=== PATIENT | female | born 1955 | race Caucasian/White ===

== ENCOUNTER 2018-05-15 08:52 | Inpatient (IN) | payer OTHER, MEDICARE, SELFPAY ==
[2018-05-08 09:52] VITALS: BMI 21.0
[2018-05-15] VITALS (14 sets, daily range): BP systolic 110–146; BP diastolic 52–95; PULSE 64–96; RESP 9–18; TEMP 36.3–37.1; O2SAT 91–100; BMI 21.0
[2018-05-15] MEDS: LACTATED RINGERS 1,000 ML 42 ML IV ×2 (09:45→12:56)
--- NOTE | 2018-05-15 09:54 | SUR.OPER ---
Prone on spine table, head in foam head support, padded chest and pelvic supports, gel pad at knees, lower legs supported by pillows; nipples, genitalia and toes free of pressure, arms secured on foam padded arm boards at <90 degrees abduction. Tape over blanket at thigh secured to table.
[2018-05-15] MEDS: CEFAZOLIN 1 GM VIAL IV (10:02)
[2018-05-15] MEDS: BUPIVACAINE LIPOSOME 266 MG/20 ML VIAL INJ (10:44)
[2018-05-15] MEDS: BUPIVACAINE 0.25% W/ EPI VIAL 50 ML INJ (10:45)
[2018-05-15] MEDS: ACETAMINOPHEN IV 1,000 MG/100 ML VIAL 400 MG IV (11:09)
--- NOTE | 2018-05-15 11:52 | DI.RAD.S_ITS ---
PROCEDURE: XR LUMBAR SPINE 2-3V INDICATIONS: L4-5 TLIF TECHNIQUE: Fluoroscopic images were obtained during an operative procedure and submitted for interpretation following the completion of the procedure. COMPARISON: None. FINDINGS: These fluoroscopic images were performed for intraoperative localization. On these images, bilateral pedicle screws with vertical fixation rods are placed at the L4 and L5 levels. A disc spacer is seen at L4-L5. Please correlate with intraoperative findings. IMPRESSION: Normal intraoperative examination. Dictated by: Rob Jay M.D. on 05/15/2018 at 11:32 Approved by: Rob Jay M.D. on 05/15/2018 at 11:33
--- NOTE | 2018-05-15 12:04 | PM.PREOP ---
Pre-operative Note Interval Note Pre-op Check: Yes History & Physical Reviewed by Physician, Yes Exam Performed and Yes History & Physical exam performed today by Physician Changes: No
--- NOTE | 2018-05-15 12:08 | P.OP_ITS ---
Operative Date/Time/Diagnoses Date of procedure: 05/15/18 Time of procedure: 10:06 Pre-op diagnosis: 1. Lumbar scoliosis 2. Lumbar spinal stenosis 3. Lumbar spondylosis with radiculopathy Post-op diagnosis: same Procedure & Clinicians Procedure: 1. L4-5 Postero-lateral and posterior interbody fusion 2. L4-5 interbody cage placement. 3. L4-5 decompressive laminectomy with bilateral facetecomies 4. L4-5 Posterior non-segmental instrumentation 5. L5-S1 left hemilaminectomy 6. [place] of bone marrow from iliac crest 7. Utilization of microsurgical technique and operating microscope Same procedure as scheduled: No Indications: Patient has been having chronic back pain and worsening lumbar radiculopathy. Patient failed multiple conservative management with worsening pain weakness and numbness in her lower extremity. Patient has been having difficulty performing activity of daily living. After discussing risks benefits of treatment options, patient elected proceed with surgery. Surgeon: Rossy Cruz Wound Care Physician: Leida Fu Click Yes if Unassisted: No Anesthesia Type: General Operative Notes Closure Type: primary Specimen(s): none sent Implants & Drains: Globus revolve screws, Rise cage Estimated Blood Loss (mL): 50 Blood products transfused: none Procedure in detail: Patient was seen in the preoperative area. Risks and benefits of the surgery was discussed with the patient. Informed consent was obtained from the patient and placed in the chart. Surgical site was marked. Patient was taken to the operative room. General anesthesia was administered. Prophylactic antibiotic was given to the patient less than 30 min before the incision was made. Patient was placed into a prone position on the Kervin table. Patient's back was then prepped and draped in the sterile fashion. Time- out was performed at this time. Using AP and lateral C-arm imaging the interval between L4-5 L5-S1 was identified and marked on patient's back. A 2 inch incision 2 in from midline was made on the left side first. The fascia was incised in line with skin incision. Globus MARS retractors was placed inside the incision and docked onto the L4 lamina. Using microsurgical technique and operating microscope, a L4 laminectomy and L4-5 facetectomy was performed using a Kerrison rongeur. The disc space at L4-5 was identified. And a total diskectomy was performed at L4-5 level. The endplates were decorticated using a rasp and shaver. The total diskectomy and decortication was performed at L4-5 level in order to to accomplish a L4-5 fusion. The local bone from the laminectomy and facetectomy was saved for local bone grafting. After the total diskectomy and decortication was completed, Globus viacell bone graft material was combined with local bone that was harvested earlier. At this time, a separate skin is incision was made over the iliac crest. A Jamshidi needle was inserted into the iliac crest through a separate skin incision. 5 cc of bone marrow aspiration was obtained through the separate skin incision using a Jamshidi needle from the iliac crest. The bone marrow aspiration was combined with local bone and the via cell bone grafting material. The bone grafting material was placed into the L4-5 interbody space along with a expandable cage. The cage was expanded to its maximum height using the torque limiting screwdriver. At this time the MARS retractor was redirected over the L5 lamina. Using microsurgical technique and operating microscope, a L5-S1 heminectomy was performed using the Kerrison rongeur. The ligamentum flavum was also resected at the side of the hemilaminectomy for further decompression of the epidural space. At this time a mirror image incision was made on the right side. The fascia was incised in line with the skin incision. Globus MARS retractor was inserted and docked onto the L4-5 posterolateral gutter. Using the power drill, posterior- lateral decortication was performed at L4-5 level until bleeding cortical bone was identified. The remaining bone grafting material was placed into the L4-5 posterior lateral gutter he order to accomplish posterolateral fusion at the L4- 5 level. Using the double C-arm technique, pedicle screws were placed into the L4 and L5 pedicles bilaterally. This was done by placing the Jamshidi needle into the pedicles, then placing the guidewires over the Jamshidi needle, and finally placing the cannulated screws over the guidewires bilaterally. After the pedicle screws were placed, 2 titanium rods was locked into the heads of the pedicle screws using locking caps and torque limiting screwdriver. After all the hardware was placed, and confirmed with AP and lateral C-arm imaging, the wound was then irrigated with sterile normal saline and packed with Ray-Jeromy gauze for 3 min to accomplish hemostasis. After the gauze was removed the deep fascia was closed with #1 Vicryl suture. The subcutaneous layer was closed with 2-0 Vicryl. The skin was closed with skin can. Patient tolerated the procedure well. There were no complications. Complications: none Condition: stable Disposition: Acute Care Plan for aftercare: Admit to inpatient hospital
[2018-05-15] MEDS: HYDROMORPHONE 2 MG INJ 0.5 MG IV ×2 (12:28→12:35)
[2018-05-15] MEDS: LORazepam 2 MG/ML SYRINGE 0.25 MG IV ×2 (12:46→12:51)
[2018-05-15] MEDS: HYDROMORPHONE 1 MG INJ 0.5 MG IV ×4 (14:25→22:44)
[2018-05-15] MEDS: SODIUM CHLORIDE 0.9% 1,000 ML 100 ML IV (14:26)
--- NOTE | 2018-05-15 14:41 | PC.NURSE ---
1325 Pt arrived from PACU via bed, post op TLIF, Pt is awake O x3. SL left FA. Pt on room air, sats 97%, Dressing to back surg site is c,d,i. Pt able to log roll in bed, ice to surg site for comfort. VS WNL. scd placed BLE. 1350 Pt c/o pain of 10/10. Pt is active in the bed, Pt assisted to BRP. Inst Pt on safety/call light use/ do not attempt to get OOB mby self. Pt agrees, states she understands.
[2018-05-15] MEDS: LORazepam 1 MG TABLET PO (15:06)
[2018-05-15] MEDS: OXYCODONE IR 5 MG TABLET 10 MG PO ×2 (15:58→19:21)
--- NOTE | 2018-05-15 17:10 | PT.IIE ---
Current Diagnoses Other idiopathic scoliosis, lumbar region (05/15/18) Spondylolisthesis, lumbar region (05/15/18) Spinal stenosis, lumbar region with neurogenic claudication (05/15/18) Surgery Performed Operation Date: 05/15/18 11:15 Actual Procedures p L5-S1 Hemilaminectomy; L4-5 TLIF w/ Posterior Instrumentation(Not Applicable) - Rossy Cruz MD Surgical History (Last Reviewed 05/15/18 @ 14:41 by Reid Watters) History of ankle surgery (Acute) Hx of discectomy (Acute) S/P wrist surgery (Acute) Medical History (Last Reviewed 05/15/18 @ 14:41 by Reid Watters) ADHD (Acute) Alcoholism (Acute) Arthritis (Acute) Back pain (Acute) Depression (Acute) Heartburn (Acute) Hypothyroidism (Acute) Numbness and tingling (Acute) PTSD (post-traumatic stress disorder) (Acute) Raynaud's disease (Acute) Sciatica (Acute) Scoliosis (Acute) Physical Therapy Inpatient Evaluation/Re-Eval M1 PT/OT-IP Prior Functional Status Start: 05/15/18 17:15 Freq: NEEDED Status: Active Protocol: Document 05/15/18 17:10 RCC (Rec: 05/15/18 17:31 RCC [email or web address]) Medical Review Prior Functional Status Mobility and Gait indep. community ambulation without device Activities of Daily Living and IADL's indep. I/ADLs Social History Household Members none Living Arrangements Apartment/Condo Number of Floors (Floors) Two Floors Number of Stairs To Enter/Railing? 8 SE with unilat rail, 8 steps inside with unilat. rail Home Environment Standard Height Toilet Tub/Shower Additional Social History Comment denies having any AD; flat bed , lives alone; pt states she took the bus to get to the hospital for surgery, does not have a ride home. M2 PT-IP Current Condition Start: 05/15/18 17:15 Freq: NEEDED Status: Active Protocol: Document 05/15/18 17:10 RCC (Rec: 05/15/18 17:31 [facility] [email or web address]) Physical Therapy Current Condition Current Condition Evaluation Date 05/15/18 Treatment Diagnosis L4-5 fusion, impaired gait and mobility Onset Date 05/15/18 Precautions Lumbar Precautions Log Roll No Twisting Limit Bending Lifting Restriction of 10 lbs Gait Belt above Incisional Area M3 PT-IP Subjective Start: 05/15/18 17:15 Freq: NEEDED Status: Active Protocol: Document 05/15/18 17:10 RCC (Rec: 05/15/18 17:31 RCC [email or web address]) Subjective Physical Therapy Visit Type Type Initial Evaluation Visit Start Time 16:40 Visit Stop Time 17:10 Total Visit Minutes 30 Number of RADIATION ONCOLOGY MANAGER Visits 0 Physical Therapy Visit Comments Patient Comments pt states pain is 10/10 in low back. Therapy Pain Assessment Pain When Pain Assessed At Rest Location Lower Back Intensity 10 Scale Used Numeric (1 - 10) M4 PT-IP Mobility and Gait Start: 05/15/18 17:15 Freq: NEEDED Status: Active Protocol: Document 05/15/18 17:10 RCC (Rec: 05/15/18 17:31 RCC [email or web address]) PT-Transfer Assessment Sit to and From Stand Sit to and from Stand Contact Guard Assistance Equipment Transfer Assistive Device Gait Belt Front Wheeled Walker Transfers Transfer Destination Chair Toilet Transfer Technique Stand Step Pivot Transfer Ability Level of Assist Contact Guard Assistance Gait Assessment Gait Gait Assistance Required: Contact Guard Assist Distance (Feet) 30 Assistive Devices Assistive Device Gait Belt Front Wheeled Walker Gait Deviations General Gait Pattern Antalgic Decreased Stride Length Decreased Feet Clearance Factors Limiting Gait Function Factors Limiting Gait Function Decreased Activity Tolerance Decreased Strength Pain PT-Balance Assessment Sitting Balance and Reactions Static Sitting Balance Ability Good Dynamic Sitting Balance Ability Good Standing Balance and Reactions Static Standing Balance Ability Fair Dynamic Standing Balance Ability Fair Device Used FWW M5 PT-IP Objective Assessments Start: 05/15/18 17:15 Freq: NEEDED Status: Active Protocol: Document 05/15/18 17:10 RCC (Rec: 05/15/18 17:31 RCC [email or web address]) Orientation Orientation/Cognition Level of Alertness Alert Orientation Name Age Birthday Month Date Year Day of Week Place Situation Strength Lower Extremity Strength Assessment Within Functional Limits Sensation Assessment Comments Sensation Comments pt denies numbness/tingling except for L toes 1-3 when walking downhill M6 PT-IP Treatment Start: 05/15/18 17:15 Freq: NEEDED Status: Active Protocol: Document 05/15/18 17:10 RCC (Rec: 05/15/18 17:31 RCC [email or web address]) Physical Therapy Treatment Education Education Provided Precautions Post-Op Packet Safety M7 PT-IP Assessment and Plan Start: 05/15/18 17:15 Freq: NEEDED Status: Active Protocol: Document 05/15/18 17:10 RCC (Rec: 05/15/18 17:31 RCC [email or web address]) PT Summary Assessment and Plan Potential Rehabilitation Potential Good Status of Condition at Evaluation Stable Summary Impairments Pain Strength Bed Mobility Transfers Gait Activity Tolerance Assessment Summary Same day post-op L4-5 postero- lateral and posterior interbody fusion. Pt able to ambulate a short distance with FWW. She has upper body tremors she reports that are not her norm, pain rated 10/10 prior to mobility. Attempted to have pt perform bed mobility but she requested to get to BR. Overall, pt with high rating of pain, appears to be limiting her ability to tolerate mobility at this time . Pt lives alone, does not have anyone around to help her . Pt stated that she planned for SNF rehabilitation prior to this surgery due to not having any assistance at home. She may struggle with activities of daily living and overall safety if she is to d /c home. Pt would benefit from SNF rehabilitation to progress her gait, mobility, safety, and overall functional independence given the risk of fall and delayed healing if she is required to perform all activities without assistance. Goals Bed Mobility Goal Independent Transfer Goal Independent Gait Goal Independent Gait Distance 300 Other Goals up/down 8 steps with unilat. rail and CGA Days to Meet Goals 3 Frequency of Treatment Frequency Of Treatment Twice a Day Treatment Plan Physical Therapy Treatment Plan Bed Mobility Training Transfer Training Gait Training Therapeutic Exercise Post Op Education Discharge Planning Hot or Cold Pack Neuromuscular Re-ed Recommendations To Nursing Amount of Assist Needed 1 Person Assist Discharge Recommendations PT Discharge Recommendations SNF Rehab Equipment Needed for Home Before if home, then FWW, BSC, tub Discharge transfer bench
[2018-05-15] MEDS: CEFAZOLIN 1 GM/50 ML FROZ.PIGGY IV (18:15)
--- NOTE | 2018-05-15 20:49 | PC.NURSE ---
Patient doing ok. Vitals stable. Continues to have a pain level of 9 and 10 throughout my whole shift. Have been trying to control her pain with Dilaudid and Oxycodone which has seemed to help some. Her pain is at a 9 at the moment. Physical therapy came to work with her tonight. ISAURO SAHU
[2018-05-15] MEDS: ACETAMINOPHEN 325 MG TABLET 650 MG PO (21:52)
[2018-05-15] MEDS: PRAZOSIN 1 MG CAPSULE 2 MG PO (21:52)
[2018-05-15] MEDS: QUETIAPINE 25 MG TABLET 50 MG PO (21:52)
[2018-05-15] MEDS: TRAZODONE 50 MG TABLET 150 MG PO (21:52)
[2018-05-15] MEDS: DOCUSATE 100 MG CAPSULE PO (21:52)
[2018-05-15] MEDS: SENNOSIDES 8.6 MG TABLET 17.2 MG PO (21:53)
[2018-05-15] MEDS: hydrOXYzine pamoate 25 MG CAPSULE PO (22:40)
[2018-05-16 01:15] VITALS: BP 103/61; PULSE 62; RESP 18; TEMP 36.6; O2SAT 95
[2018-05-16] MEDS: HYDROMORPHONE 1 MG INJ 0.5 MG IV ×2 (01:28→06:52)
[2018-05-16] MEDS: SODIUM CHLORIDE 0.9% 1,000 ML 100 ML IV ×2 (01:29→11:18)
[2018-05-16] MEDS: CEFAZOLIN 1 GM/50 ML FROZ.PIGGY IV (01:29)
[2018-05-16] MEDS: OXYCODONE IR 5 MG TABLET 10 MG PO ×3 (02:09→20:55)
[2018-05-16] MEDS: LORazepam 1 MG TABLET PO ×3 (02:12→17:38)
[2018-05-16 05:09] VITALS: BP 104/70; PULSE 71; RESP 18; TEMP 36.9; O2SAT 95
[2018-05-16 05:39] LABS: Hematocrit 35.7 % (36-46)
[2018-05-16] MEDS: LEVOTHYROXINE 50 MCG TABLET PO (05:57)
[2018-05-16] MEDS: hydrOXYzine pamoate 25 MG CAPSULE PO (06:54)
--- NOTE | 2018-05-16 07:47 | PM.PNPO.1 ---
Subjective Date Patient Seen: 05/16/18 Time Patient Seen: 07:47 Interval history: Pt is PD 1. S/P lumbar fusion by Dr. Cruz. Complaining of pain and muscle spasms. Denies numbness or tingling. Currently receiving oxycodone 10 mg q.3h as needed and Vistaril 25 mg. States that before surgery she had been on oxycodone 3 times a day for pain. Has been up out of bed to the restroom. Eating and drinking well. Would like to go to SNF after discharge from the hospital because she has no one to take care of her at home. Exam Vital Signs (past 8 hours): - 05/16/18 01:15 05/16/18 05:09 Temperature 97.8 F 98.4 F Pulse Rate 62 71 Respiratory Rate 18 18 Blood Pressure 103/61 104/70 Pulse Oximetry 95 95 Oxygen Delivery Method Room Air Oxygen Flow Rate 0 Narrative Exam Narrative: Patient in bed. Alert orient x3. Back dressing clean dry and intact. Neurovascular status intact. 5/5 BLE strength. Bilateral calves soft and nontender. Objective Labs Result Diagrams: 05/16/18 05:06 Labs: Laboratory Results - last 24 hr 05/16/18 05:06 Hgb 12.0 Hct 35.7 L Assessment & Plan Post-op Postoperative Procedures Operation Date: 05/15/18 11:15 Actual Procedures Side Surgeon p L5-S1 Hemilaminectomy; L4-5 TLIF w/ Posterior Instrumentation Not Applicable Rossy Cruz MD postop day 1. Switch the patient to Dilaudid 2 mg q.3h as needed pain. Also order her Flexeril 10 mg q.6h as needed muscle spasms. Patient has taken Flexeril before and has had good results. Ambulate with physical therapy. May need this with after discharge from the hospital. Anticipate discharge in couple of days. Quality VTE Deep Vein Thrombosis/Pulmonary Embolism Present on Admission: No
[2018-05-16 08:25] VITALS: BP 137/87; PULSE 70; RESP 22; TEMP 37.3; O2SAT 96
[2018-05-16] MEDS: PRAZOSIN 1 MG CAPSULE 2 MG PO ×3 (08:48→20:55)
[2018-05-16] MEDS: GABAPENTIN 300 MG CAPSULE PO (08:48)
[2018-05-16] MEDS: VENLAFAXINE ER 75 MG CAP 225 MG PO (08:49)
[2018-05-16] MEDS: LORATADINE 10 MG TABLET PO (08:49)
[2018-05-16] MEDS: DOCUSATE 100 MG CAPSULE PO ×2 (08:49→20:54)
[2018-05-16] MEDS: FLUTICASONE 120 SPRAY/16 GM SPRAY.SUSP NASAL (08:49)
[2018-05-16] MEDS: HYDROMORPHONE 2 MG TABLET PO ×3 (08:50→19:10)
[2018-05-16] MEDS: CYCLOBENZAPRINE 10 MG TABLET PO ×2 (09:46→15:59)
--- NOTE | 2018-05-16 10:25 | PC.NURSE ---
Addendum entered by [place] 05/16/18 11:26: 0.9% NS at 100/hr and Dextroamphetamine 25 mg received from pharmacy and administered at 11:20. Patient continual complaints of severe pain, but denied Tylenol per PRN for additional pain control. Pt also reports wooziness and stomach cramps, and was informed that zofran is available for reduction of nausea if these symptoms were to progress. Original Note: Patient expresses complaints of severe pain (9/10) and muscle spasms in her back around 08:00. Patient was notified of changes in medications, and explained that she smokes 3-4 cigarettes a day and is requesting a nicotine patch. Pt's home med dextroamphetamine-amphetamine 25 mg PO was claimed from pts belongings with pt permission. Pt Is tearful and anxious but oriented x4 and alert, vital signs normal and O2 sat in high 90's. Medications administered with breakfast around 09:00 including Dilaudid 2mg PO to help control pain. Pt has called provider and charge nurse multiple times in regards to complaints of inadequate pain management. Flexeril 10mg PO was given at 09:46 to help control patient-reported leg and back muscle spasms, Ativan 1mg PO was administered 10:16 to help alleviate anxiety until the next scheduled pain medication - neither medication have provided adequate pain relief as reported by the patient. Currently waiting on pharmacy for dextroamphetamine-amphetamine 25mg PO.
[2018-05-16] MEDS: DEXTROAMPHETAMINE AMPHETAMINE 25 EACH PO (11:16)
--- NOTE | 2018-05-16 11:43 | PT.IPTN ---
Current Diagnoses Other idiopathic scoliosis, lumbar region (05/15/18) Spondylolisthesis, lumbar region (05/15/18) Spinal stenosis, lumbar region with neurogenic claudication (05/15/18) Surgery Performed Operation Date: 05/15/18 11:15 Actual Procedures p L5-S1 Hemilaminectomy; L4-5 TLIF w/ Posterior Instrumentation(Not Applicable) - Rossy Cruz MD Physical Therapy Treatment Note M2 PT-IP Current Condition Start: 05/15/18 17:15 Freq: NEEDED Status: Active Protocol: Document 05/15/18 17:10 RCC (Rec: 05/15/18 17:31 RCC [email or web address]) Physical Therapy Current Condition Current Condition Evaluation Date 05/15/18 Treatment Diagnosis L4-5 fusion, impaired gait and mobility Onset Date 05/15/18 Precautions Lumbar Precautions Log Roll No Twisting Limit Bending Lifting Restriction of 10 lbs Gait Belt above Incisional Area M3 PT-IP Subjective Start: 05/15/18 17:15 Freq: NEEDED Status: Active Protocol: Document 05/16/18 11:34 SA (Rec: 05/16/18 11:42 SA [id number]) Subjective Physical Therapy Visit Type Type Treatment Note Visit Start Time 10:50 Visit Stop Time 11:10 Total Visit Minutes 20 Number of SMOKEHOUSE OPERATOR Visits 1 Physical Therapy Visit Comments Patient Comments Pt with 10/10 c/o of low back pain at rest. States her pain is not being managed. Nursing present with pain medication, also pt received pain meds earlier this AM. Pt does state she needs to go to bathroom. Therapy Pain Assessment Pain When Pain Assessed At Rest Pain Present Pain Present Pain Reported Location Lower Back Intensity 10 Scale Used Numeric (1 - 10) Pain Management Techniques Apply Cold Re-positioning Timing of Activity with Medications M4 PT-IP Mobility and Gait Start: 05/15/18 17:15 Freq: NEEDED Status: Active Protocol: Document 05/16/18 11:34 SA (Rec: 05/16/18 11:42 SA [id number]) PT-Bed Mobility Assessment Rolling Type of Rolling Log Rolling Roll to Right Supine to Sit Supine to Sit Minimal Assistance Sit to Supine Sit to Supine Minimal Assistance Scooting Scooting to Edge of Bed Minimal Assistance Scooting Up and Down in Bed Moderate Assistance PT-Transfer Assessment Sit to and From Stand Sit to and from Stand Contact Guard Assistance Equipment Transfer Assistive Device Gait Belt Front Wheeled Walker Transfers Transfer Destination Bed Toilet Transfer Ability Level of Assist Contact Guard Assistance Comments Mobility Comments Pt very guarded and exhibits pain behaviors. Gait Assessment Gait Gait Assistance Required: Contact Guard Assist Distance (Feet) 40 Assistive Devices Assistive Device Gait Belt Front Wheeled Walker Gait Deviations General Gait Pattern Decreased Stride Length Decreased Feet Clearance Flexed Trunk Factors Limiting Gait Function Factors Limiting Gait Function Decreased Activity Tolerance Decreased Strength Pain Comments Gait Comments PT able to walk to/from bathroom with FWW and CGA, mod cues for safety. M5 PT-IP Objective Assessments Start: 05/15/18 17:15 Freq: NEEDED Status: Active Protocol: Document 05/15/18 17:10 RCC (Rec: 05/15/18 17:31 RCC [email or web address]) Orientation Orientation/Cognition Level of Alertness Alert Orientation Name Age Birthday Month Date Year Day of Week Place Situation Strength Lower Extremity Strength Assessment Within Functional Limits Sensation Assessment Comments Sensation Comments pt denies numbness/tingling except for L toes 1-3 when walking downhill M6 PT-IP Treatment Start: 05/15/18 17:15 Freq: NEEDED Status: Active Protocol: Document 05/15/18 17:10 RCC (Rec: 05/15/18 17:31 [facility] [email or web address]) Physical Therapy Treatment Education Education Provided Precautions Post-Op Packet Safety M7 PT-IP Assessment and Plan Start: 05/15/18 17:15 Freq: NEEDED Status: Active Protocol: Document 05/16/18 11:34 SA (Rec: 05/16/18 11:42 SA [id number]) PT Summary Assessment and Plan Potential Rehabilitation Potential Good Status of Condition at Evaluation Stable Summary Assessment Summary Pt with pain as most limiting factor, upper body tremors and c/o being cold. Able to stand at sink to russ hands and turn with FWW in tight spaces, Mod cues for safety and technique . Frequency of Treatment Frequency Of Treatment Twice a Day Recommendations To Nursing Amount of Assist Needed 1 Person Assist Discharge Recommendations PT Discharge Recommendations SNF Rehab Equipment Needed for Home Before if home, then FWW, BSC, tub Discharge transfer bench
[2018-05-16] MEDS: NICOTINE 7 MG PATCH TOP (12:13)
--- NOTE | 2018-05-16 14:44 | OT.IP.EVAL ---
Current Diagnoses Other idiopathic scoliosis, lumbar region (05/15/18) Spondylolisthesis, lumbar region (05/15/18) Spinal stenosis, lumbar region with neurogenic claudication (05/15/18) Surgery Performed Operation Date: 05/15/18 11:15 Actual Procedures p L5-S1 Hemilaminectomy; L4-5 TLIF w/ Posterior Instrumentation(Not Applicable) - Rossy Cruz MD Past Medical History (Last Reviewed 05/15/18 @ 14:41 by Reid Watters) ADHD (Acute) Alcoholism (Acute) Arthritis (Acute) Back pain (Acute) Depression (Acute) Heartburn (Acute) Hypothyroidism (Acute) Numbness and tingling (Acute) PTSD (post-traumatic stress disorder) (Acute) Raynaud's disease (Acute) Sciatica (Acute) Scoliosis (Acute) Surgical History (Last Reviewed 05/15/18 @ 14:41 by Reid Watters) History of ankle surgery (Acute) Hx of discectomy (Acute) S/P wrist surgery (Acute) Occupational Therapy Inpatient Evaluation/Re-Eval M1 PT/OT-IP Prior Functional Status Start: 05/15/18 17:15 Freq: NEEDED Status: Active Protocol: Document 05/16/18 14:44 PJM (Rec: 05/16/18 16:51 PJM [id number]) Medical Review Prior Functional Status Medical History Reviewed Yes Diet/Fluid Consistency Regular Communication WFL Mobility and Gait indep. community ambulation without device Activities of Daily Living and IADL's indep. I/ADLs Prior Functional Level (Other details) Pt does not own a car; uses bus in [facility] for transport to grocery store. Limited social support, but will occasionally ask a friend to assist with groceries when absolutely necessary. Social History Household Members none Living Arrangements Apartment/Condo Number of Floors (Floors) One Floor Number of Stairs To Enter/Railing? 8+8 stairs with rail Home Environment Standard Height Toilet Tub/Shower Additional Social History Comment Pt states she has been on disability since 2006. Pt has no DME at home M2 OT-IP Current Condition Start: 05/16/18 16:34 Freq: Status: Active Protocol: Document 05/16/18 14:44 PJM (Rec: 05/16/18 16:51 PJM [id number]) Occupational Therapy Current Condition Current Condition Evaluation Date 05/16/18 Treatment Diagnosis decreased self care and functional mobility s/p L4-5 PLIF Diagnosis Onset Date 05/15/16 Post Operative Precautions Lumbar Precautions Log Roll No Twisting Limit Bending Lifting Restriction of 10 lbs Gait Belt above Incisional Area M3 OT- IP Subjective and Pain Start: 05/16/18 16:34 Freq: Status: Active Protocol: Document 05/16/18 14:44 PJM (Rec: 05/16/18 16:51 PJM [id number]) OT- Subjective Occupational Therapy Visit Type Type Initial Evaluation Visit Start Time 14:21 Visit Stop Time 14:44 Total Visit Minutes 23 Notes Participation limited by decreased pain control this session. Occupational Therapy Visit Comments Patient Comments I didn't think it would hurt this much. It is worse than my last 2 back surgeries. Patient/Caregiver Goals to go to rehab I can't manage at home on my own. OT Pain Assessment Pain When Pain Assessed After Treatment Pain Present Pain Present Pain Reported Location Lower Back Intensity 9 Scale Used Numeric (1 - 10) Description Aching Acute Pain Behaviors Facial Grimacing Guarding Restlessness Wincing Management Techniques Re-positioning Timing of Activity with Medications M4 OT- IP ADL's Start: 05/16/18 16:34 Freq: Status: Active Protocol: Document 05/16/18 14:44 PJM (Rec: 05/16/18 16:51 PJM [email or web address]) OT [id number] General Evaluation Self-Feeding Ability Independent OT ADL-Grooming General Evaluation Grooming Ability Standby Assistance Areas Needing Assistance Retrieving/Set-up of Grooming Items Face Washing Comments OT Grooming Comments to wash face in bed OT ADL-Oral Care Comments Oral Care Comments pt declined this session OT ADL-Dressing General Eval Lower Body Dressing Ability Maximum Assistance Comments OT Dressing Comments Provided felled seam operator chainstitch,long shoe horn and sock aid as pt lives alone and has limited resources to purchase equipment. OT ADL-Toileting General Evaluation Toileting Ability Standby Assistance Areas Needing Assistance Perform Perineal Hygiene Devices Toileting Assistive Devices Grab Bars Raised Toilet Seat OT ADL-Bathing Comments OT Bathing Comments to be assessed as activiyt level improves M5 OT- IP IADL's Start: 05/16/18 16:34 Freq: Status: Active Protocol: Document 05/16/18 14:44 PJM (Rec: 05/16/18 16:51 PJM [id number]) OT-Instrumental Activities of Daily Living Deficits IADL Deficits Identified Deficits Home Safety Awareness Awareness of Need for Assistance at Home Good Awareness Ability to Problem Solve Emergency Able to Problem Solve Situations Medication Management Medication Management No Deficits Identified Money Management Money Management No Deficits Identified Meal Preparation Meal Preparation Comments pt will need assist at present due to low activity tolerance; provided information about [employer] grocery services at [facility] [employer] Plug Shaper Hand Plug Shaper Hand Comments pt will need assist at present due to lumbar spine precautions Driving Driving Comments pt does not own a car; took bus here and does not have ride home arranged M6 OT- IP Functional Cognition Start: 05/16/18 16:34 Freq: Status: Active Protocol: Document 05/16/18 14:44 PJM (Rec: 05/16/18 16:51 [facility] NR) Cognitive Factors Limiting Selfcare Function Cognitive Ability Level of Alertness Alert Patient Orientation Name Age Birthday Month Date Year Day of Week Place Situation Attention Span Ability Capable of Focused Attention Ability to Follow Commands Able to Follow One Step Commands Safety Awareness Decreased Recall of Precautions Decreased Ability to Apply Precautions Problem Solving Ability Needs Assist to Identify Solutions Cognitive Comments Cognitive Assessment Comments flat affect; pt distracted by high pain level OT- Vision and Hearing OT- Hearing Assessment OT- Hearing Assessment WFL OT- Vision Assessment Visual Acuity Glasses All The Time Vision Assessment Comments Pt denies any recent vision changes M7 OT- IP Mobility and Balance Start: 05/16/18 16:34 Freq: Status: Active Protocol: Document 05/16/18 14:44 PJM (Rec: 05/16/18 16:51 [facility] [id number]) OT- Bed Mobility Assessment Rolling Type of Rolling Roll to Left Level of Assistance Minimal Assistance 1 Person Assistance Sit to Supine Sit to Supine Assist Moderate Assistance 1 Person Assistance Scooting Scooting to Edge of Bed Standby Assistance OT-Transfer Assessment Sit to and From Stand Sit to and from Stand Contact Guard Assistance Technique Transfer Destination Bed Transfer Technique Stand Step Pivot Devices Transfer Assistive Devices Gait Belt Front Wheeled Walker OT- Gait Assessment Gait Distance (Feet) 20 Assistive Devices Assistive Device Gait Belt Front Wheeled Walker Comments Gait Ability Comments Pt just leaving bathroom with RN when therapist arrived. OT- Balance Assessment Sitting Balance and Reactions Static Sitting Balance Ability Good Dynamic Sitting Balance Ability Fair Standing Balance and Reactions Static Standing Balance Ability Good Dynamic Standing Balance Ability Fair M8 OT- IP Objective Assessments Start: 05/16/18 16:34 Freq: Status: Active Protocol: Document 05/16/18 14:44 PJM (Rec: 05/16/18 16:51 PJM [id number]) OT Gross Range of Motion Upper Extremity Range of Motion Assessment Within Functional Limits OT Strength Upper Extremity Strength Assessment Within Functional Limits OT- Coordination Assessment Comments Coordination Comments BUE WFL OT-Muscle Tone Assessment Muscle Tone WNL Yes OT Sensation Assessment Comments Summary Comments BUE WNL M9 OT- IP Assessment and Plan Start: 05/16/18 16:34 Freq: Status: Active Protocol: Document 05/16/18 14:44 PJM (Rec: 05/16/18 16:51 PJM [id number]) OT Summary Assessment and Plan Potential Rehabilitation Potential Good Analytic Complexity at Evaluation Low Summary OT Impairments Pain Strength Balance Functional Mobility Grooming Dressing Toileting Bathing Toilet Transfers Shower Transfers Assessment Summary Low complexity OT assessment completed with emphasis on self care skills within lumbar spine precautions. Pt lives alone with limited social support and is far below her baseline level of function. She currently has performance deficits in activity tolerance , all functional mobility/ transfers, standing grooming, lower body dressing, bathing, toileting and all IADLs. Pt not safe to return home alone to her 2nd story apartment. Recommend SNF at d/c for further subacute rehab services. Goals Grooming Goal Standby Assistance Dressing Goal Minimal Assistance Long Handled Shoe Horn Business Intelligence Administrator Sock Aid Toileting Goal Independent Bathing Goal Minimal Assistance Toilet Transfer Goal Contact Guard Assistance Shower Transfer Goal Contact Guard Assistance Patient/Caregiver Education Goal Demonstrate Post-Op Precautions Demonstrate Energy Conservation and Pacing OT-Other Goals Grooming to be done standing at sink with good body mechanics and no loss of balance Days to Meet Goals 3 Frequency of Treatment Frequency Of Treatment Once a Day Treatment Plan OT Treatment Plan ADL Training Functional Mobility Patient/Family Education Discharge Planning Discharge Recommendations OT Discharge Recommendations SNF Rehab Home Equipment Needs to be determined in next rehab setting
--- NOTE | 2018-05-16 14:51 | CM.DPC ---
Referral faxed to [facility] per Mouna
--- NOTE | 2018-05-16 15:07 | CM.IDA ---
DCP Assessment Note: Pt is a 63 yo female, resident of [facility]. Pt POD#1 from scheduled Spinal surgery w/ Dr Cruz. Pt's listed PCP is Nuha Quarles and Insurance is Medicare. Met w/pt this morning and she said she has been in a lot of pain and requests this PARTY CHIEF come back tomorrow. Pt has requested [facility] upon DC and therapy team agrees; catering administrative assistant has faxed referral. Following closely. DAVIE García Discharge Planning/Care Management CM Discharge Assessment Start: 05/16/18 15:04 Freq: Status: Active Protocol: Document 05/16/18 15:04 ASHWINI (Rec: 05/16/18 15:07 [id number]) Discharge Planning Assessment Assigned Handle Rounder Operator DAVIE Stephens DPOA/Assigned Designee Name tania June Contact Information [phone] Advance Directives? No Advance Directives on File No History Provided By Patient Prior Living Arrangements Apartment/Condo Household Members none Type of transporation used prior to Drives own vehicle admit Independent with ADL's Yes Is patient alert and oriented? Yes Comment OT Bhakti states: Pt somewhat isolated, living alone, took bus here and plans to DC to [facility] Patient/Family Preference [facility] Facility Comment 1. [facility] Barriers to Discharge Yes Comment Lives alone, PT/OT: SNF, POD#1 from spinal surgery Discharge Plan [facility] Transportation Arrangement Likely cabulance Referrals Initiated [facility] Additional Comment Requested catering administrative assistant Grant send referral to [facility] per pt's request. Inpatient Status as of 05/16/18 Comment Status being reviewed SNF/HH Preference 1. [facility] Has Agency SNF been contacted Yes Whiteboard Updated in Patient Room with Yes name and ext. # of Handle Rounder Operator
[2018-05-16 15:48] VITALS: BP 101/52; PULSE 77; RESP 16; TEMP 36.9; O2SAT 98
--- NOTE | 2018-05-16 15:58 | PT.IPTN ---
Current Diagnoses Other idiopathic scoliosis, lumbar region (05/15/18) Spondylolisthesis, lumbar region (05/15/18) Spinal stenosis, lumbar region with neurogenic claudication (05/15/18) Surgery Performed Operation Date: 05/15/18 11:15 Actual Procedures p L5-S1 Hemilaminectomy; L4-5 TLIF w/ Posterior Instrumentation(Not Applicable) - Rossy Cruz MD Physical Therapy Treatment Note M2 PT-IP Current Condition Start: 05/15/18 17:15 Freq: NEEDED Status: Active Protocol: Document 05/15/18 17:10 RCC (Rec: 05/15/18 17:31 RCC [email or web address]) Physical Therapy Current Condition Current Condition Evaluation Date 05/15/18 Treatment Diagnosis L4-5 fusion, impaired gait and mobility Onset Date 05/15/18 Precautions Lumbar Precautions Log Roll No Twisting Limit Bending Lifting Restriction of 10 lbs Gait Belt above Incisional Area M3 PT-IP Subjective Start: 05/15/18 17:15 Freq: NEEDED Status: Active Protocol: Document 05/16/18 15:48 SA (Rec: 05/16/18 15:58 SA [id number]) Subjective Physical Therapy Visit Type Type Treatment Note Visit Start Time 15:24 Visit Stop Time 15:47 Total Visit Minutes 23 Number of EXCELSIOR MACHINE OPERATOR Visits 2 Physical Therapy Visit Comments Patient Comments Pt agreeable to PT after having pain medication. Rates LBP as 8/10 at rest and 10/10 with movement. Therapy Pain Assessment Pain When Pain Assessed At Rest Pain Present Pain Present Pain Reported Location Lower Back Intensity 8 Scale Used Numeric (1 - 10) Pain Management Techniques Apply Cold Re-positioning Timing of Activity with Medications M4 PT-IP Mobility and Gait Start: 05/15/18 17:15 Freq: NEEDED Status: Active Protocol: Document 05/16/18 15:48 SA (Rec: 05/16/18 15:58 SA [id number]) PT-Bed Mobility Assessment Rolling Type of Rolling Log Rolling Roll to Right Supine to Sit Supine to Sit Contact Guard Assistance Sit to Supine Sit to Supine Contact Guard Assistance Scooting Scooting to Edge of Bed Contact Guard Assistance Scooting Up and Down in Bed Contact Guard Assistance PT-Transfer Assessment Sit to and From Stand Sit to and from Stand Contact Guard Assistance Equipment Transfer Assistive Device Gait Belt Front Wheeled Walker Transfers Transfer Destination Bed Transfer Technique Stand Step Pivot Transfer Ability Level of Assist Contact Guard Assistance Comments Mobility Comments Continued gaurding through torso with upper body tremors. Provided education for daily activity and progressing with pain. Gait Assessment Gait Gait Assistance Required: Contact Guard Assist Distance (Feet) 35 Able to Maintain Weight Bearing Status Yes During Gait Assistive Devices Assistive Device Gait Belt Front Wheeled Walker Gait Deviations General Gait Pattern Decreased Stride Length Decreased Feet Clearance Flexed Trunk Factors Limiting Gait Function Factors Limiting Gait Function Decreased Activity Tolerance Decreased Strength Pain Comments Gait Comments Pt able to walk to window and back in room, declines further ambulation. M5 PT-IP Objective Assessments Start: 05/15/18 17:15 Freq: NEEDED Status: Active Protocol: Document 05/15/18 17:10 RCC (Rec: 05/15/18 17:31 RCC [email or web address]) Orientation Orientation/Cognition Level of Alertness Alert Orientation Name Age Birthday Month Date Year Day of Week Place Situation Strength Lower Extremity Strength Assessment Within Functional Limits Sensation Assessment Comments Sensation Comments pt denies numbness/tingling except for L toes 1-3 [address] walking downhill M6 PT-IP Treatment Start: 05/15/18 17:15 Freq: NEEDED Status: Active Protocol: Document 05/16/18 15:48 SA (Rec: 05/16/18 15:58 SA [id number]) Physical Therapy Treatment Other Treatments Other Treatment Performed Pt completed ankle pumps and heel slides with limited range in bed and very slow guarded movements. M7 PT-IP Assessment and Plan Start: 05/15/18 17:15 Freq: NEEDED Status: Active Protocol: Document 05/16/18 15:48 SA (Rec: 05/16/18 15:58 [id number]) PT Summary Assessment and Plan Potential Rehabilitation Potential Good Status of Condition at Evaluation Stable Summary Assessment Summary Pt states she is going to SNF the day after tomorrow, still pain is most limiting factor. Frequency of Treatment Frequency Of Treatment Twice a Day Recommendations To Nursing Amount of Assist Needed 1 Person Assist Discharge Recommendations PT Discharge Recommendations SNF Rehab Equipment Needed for Home Before Pt to d/c to SNF. Discharge
[2018-05-16 20:09] VITALS: BP 133/73; PULSE 69; RESP 16; TEMP 36.9; O2SAT 100
[2018-05-16] MEDS: SODIUM CHLORIDE 0.9% FLUSH 10 ML IV (20:52)
[2018-05-16] MEDS: SENNOSIDES 8.6 MG TABLET 17.2 MG PO (20:54)
[2018-05-16] MEDS: TRAZODONE 50 MG TABLET 150 MG PO (20:54)
[2018-05-16] MEDS: QUETIAPINE 25 MG TABLET 50 MG PO (20:55)
[2018-05-17] VITALS (7 sets, daily range): BP systolic 97–113; BP diastolic 53–73; PULSE 53–83; RESP 14–20; TEMP 36.4–36.9; O2SAT 94–100
[2018-05-17] MEDS: CYCLOBENZAPRINE 10 MG TABLET PO ×3 (01:09→15:52)
[2018-05-17] MEDS: HYDROMORPHONE 2 MG TABLET PO ×4 (01:09→13:09)
[2018-05-17] MEDS: LORazepam 1 MG TABLET PO ×3 (04:48→20:49)
[2018-05-17] MEDS: ACETAMINOPHEN 325 MG TABLET 650 MG PO ×3 (05:49→17:35)
[2018-05-17] MEDS: LEVOTHYROXINE 50 MCG TABLET PO (05:49)
--- NOTE | 2018-05-17 06:17 | PC.NURSE ---
Pt. received 2 doses of Hydromorphone 2 mg. po, a dose of Flexeril for spasm and Ativan plus Tylenol for pain last night . Pt. states that those meds helps her a little bit but not a lot and feels that her pain is not adequately controlled. Pt. expressed that she should be comfortable which I explained to her that that would be an unrealistic expectation at this time. Our goal is to make her pain tolerable but unfortunately she won't be pain free probably for days. Pt. was able to rest last night for about 3 hrs. after given Hydromorphone and Flexeril. Will pass to oncoming nurse so MD could increase dosing of her pain meds.
--- NOTE | 2018-05-17 07:58 | PM.PNPO.1 ---
Subjective Date Patient Seen: 05/17/18 Time Patient Seen: 07:58 Interval history: POD #2 s/p lumbar fusion with Dr. Cruz. Patient's pain is not well controlled and states dilaudid does not work well for her. No previous issues taking steroids in the past. She has been up with PT. Exam Vital Signs (past 8 hours): - 05/17/18 00:56 05/17/18 04:30 Temperature 98.2 F 98.5 F Pulse Rate 66 73 Respiratory Rate 14 18 Blood Pressure 97/53 L 113/65 Pulse Oximetry 96 94 Oxygen Delivery Method Room Air Oxygen Flow Rate 0 Narrative Exam Narrative: Patient lying in bed in NAD. SILT throughout BUEs. She is able to activley dorsiflex and plantarflex. Calves are soft, compressible, and nontender bilaterally. Objective Labs Result Diagrams: 05/16/18 05:06 Assessment & Plan Post-op (1) S/P lumbar fusion: Current Visit: Yes Status: Acute Postoperative Procedures Operation Date: 05/15/18 11:15 Actual Procedures Side Surgeon p L5-S1 Hemilaminectomy; L4-5 TLIF w/ Posterior Instrumentation Not Applicable Rossy Cruz MD POD #2 s/p lumbar fusion with Dr. Cruz. Increase frequency of Oxycodone. Start on steroids, 10mg now, and then 4mg every 6 hours for 24 hours. Patient will continue to mobilize with PT. Plan to DC once mobilizing safely and pain adequately controlled. Quality VTE Deep Vein Thrombosis/Pulmonary Embolism Present on Admission: No
[2018-05-17] MEDS: OXYCODONE IR 5 MG TABLET 10 MG PO ×5 (08:59→20:40)
[2018-05-17] MEDS: DEXAMETHASONE 4 MG TABLET 10 MG PO (09:01)
[2018-05-17] MEDS: DEXTROAMPHETAMINE AMPHETAMINE 25 EACH PO (09:03)
[2018-05-17] MEDS: DOCUSATE 100 MG CAPSULE PO ×2 (09:06→20:41)
[2018-05-17] MEDS: GABAPENTIN 300 MG CAPSULE PO (09:06)
[2018-05-17] MEDS: LORATADINE 10 MG TABLET PO (09:07)
[2018-05-17] MEDS: PRAZOSIN 1 MG CAPSULE 2 MG PO ×2 (09:07→16:38)
[2018-05-17] MEDS: NICOTINE 7 MG PATCH TOP (09:07)
[2018-05-17] MEDS: VENLAFAXINE ER 75 MG CAP 225 MG PO (09:08)
[2018-05-17] MEDS: SODIUM CHLORIDE 0.9% FLUSH 10 ML IV ×2 (09:08→20:42)
--- NOTE | 2018-05-17 10:25 | PT.IPTN ---
Current Diagnoses Other idiopathic scoliosis, lumbar region (05/15/18) Spondylolisthesis, lumbar region (05/15/18) Spinal stenosis, lumbar region with neurogenic claudication (05/15/18) Arthrodesis status (05/15/18) Surgery Performed Operation Date: 05/15/18 11:15 Actual Procedures p L5-S1 Hemilaminectomy; L4-5 TLIF w/ Posterior Instrumentation(Not Applicable) - Rossy Cruz MD Physical Therapy Treatment Note M2 PT-IP Current Condition Start: 05/15/18 17:15 Freq: NEEDED Status: Active Protocol: Document 05/15/18 17:10 RCC (Rec: 05/15/18 17:31 RCC [id number]) Physical Therapy Current Condition Current Condition Evaluation Date 05/15/18 Treatment Diagnosis L4-5 fusion, impaired gait and mobility Onset Date 05/15/18 Precautions Lumbar Precautions Log Roll No Twisting Limit Bending Lifting Restriction of 10 lbs Gait Belt above Incisional Area M3 PT-IP Subjective Start: 05/15/18 17:15 Freq: NEEDED Status: Active Protocol: Document 05/17/18 10:20 GGD (Rec: 05/17/18 12:34 GGD [id number]) Subjective Physical Therapy Visit Type Type Treatment Note Visit Start Time 09:55 Visit Stop Time 10:20 Total Visit Minutes 25 Number of PROFESSOR OF SOCIOLOGY Visits 3 Physical Therapy Visit Comments Patient Comments Pt willing to get up. Therapy Pain Assessment Pain When Pain Assessed At Rest Pain Present Pain Present Pain Reported Location Lower Back Intensity 8 Scale Used Numeric (1 - 10) Pain Management Techniques Re-positioning Timing of Activity with Medications M4 PT-IP Mobility and Gait Start: 05/15/18 17:15 Freq: NEEDED Status: Active Protocol: Document 05/17/18 10:20 GGD (Rec: 05/17/18 12:34 GGD [id number]) PT-Bed Mobility Assessment Rolling Type of Rolling Log Rolling Roll to Right Supine to Sit Supine to Sit Contact Guard Assistance Scooting Scooting to Edge of Bed Contact Guard Assistance Scooting Up and Down in Bed Contact Guard Assistance PT-Transfer Assessment Sit to and From Stand Sit to and from Stand Contact Guard Assistance Equipment Transfer Assistive Device Gait Belt Front Wheeled Walker Transfers Transfer Destination Chair Transfer Ability Level of Assist Contact Guard Assistance Gait Assessment Gait Gait Assistance Required: Contact Guard Assist Distance (Feet) 130 Able to Maintain Weight Bearing Status Yes During Gait Assistive Devices Assistive Device Gait Belt Front Wheeled Walker Gait Deviations General Gait Pattern Decreased Stride Length Decreased Feet Clearance Flexed Trunk Factors Limiting Gait Function Factors Limiting Gait Function Decreased Activity Tolerance Decreased Strength Pain M5 PT-IP Objective Assessments Start: 05/15/18 17:15 Freq: NEEDED Status: Active Protocol: Document 05/15/18 17:10 RCC (Rec: 05/15/18 17:31 RCC [id number]) Orientation Orientation/Cognition Level of Alertness Alert Orientation Name Age Birthday Month Date Year Day of Week Place Situation Strength Lower Extremity Strength Assessment Within Functional Limits Sensation Assessment Comments Sensation Comments pt denies numbness/tingling except for L toes 1-3 when walking downhill M6 PT-IP Treatment Start: 05/15/18 17:15 Freq: NEEDED Status: Active Protocol: Document 05/17/18 10:20 GGD (Rec: 05/17/18 12:34 GGD [id number]) Physical Therapy Treatment Education Education Provided Precautions M7 PT-IP Assessment and Plan Start: 05/15/18 17:15 Freq: NEEDED Status: Active Protocol: Document 05/17/18 10:20 GGD (Rec: 05/17/18 12:34 GGD [id number]) PT Summary Assessment and Plan Summary Assessment Summary Pt improving with mobility. She is limited by pain. She needed cues for mobility and safety with gait. Frequency of Treatment Frequency Of Treatment Twice a Day Recommendations To Nursing Amount of Assist Needed 1 Person Assist Discharge Recommendations PT Discharge Recommendations SNF Rehab
--- NOTE | 2018-05-17 11:12 | OT.IP.TRT ---
Current Diagnoses Other idiopathic scoliosis, lumbar region (05/15/18) Spondylolisthesis, lumbar region (05/15/18) Spinal stenosis, lumbar region with neurogenic claudication (05/15/18) Arthrodesis status (05/15/18) Surgery Performed Operation Date: 05/15/18 11:15 Actual Procedures p L5-S1 Hemilaminectomy; L4-5 TLIF w/ Posterior Instrumentation(Not Applicable) - Rossy Cruz MD Occupational Therapy Treatment Note M2 OT-IP Current Condition Start: 05/16/18 16:34 Freq: Status: Active Protocol: Document 05/16/18 14:44 PJM (Rec: 05/16/18 16:51 PJM [id number]) Occupational Therapy Current Condition Current Condition Evaluation Date 05/16/18 Treatment Diagnosis decreased self care and functional mobility s/p L4-5 PLIF Diagnosis Onset Date 05/15/16 Post Operative Precautions Lumbar Precautions Log Roll No Twisting Limit Bending Lifting Restriction of 10 lbs Gait Belt above Incisional Area M3 OT- IP Subjective and Pain Start: 05/16/18 16:34 Freq: Status: Active Protocol: Document 05/17/18 11:12 PJM (Rec: 05/17/18 12:21 PJM [email or web address]) OT- Subjective Occupational Therapy Visit Type Type Treatment Note Visit Start Time 10:55 Visit Stop Time 11:12 Notes Pt requesting to get back to bed due to high pain level but agreeable to short tx session seated in chair, Occupational Therapy Visit Comments Patient Comments The pain pills don't seem to help much. Patient/Caregiver Goals to return to independent living alone in her apartment OT Pain Assessment Pain When Pain Assessed After Treatment Pain Present Pain Present Pain Reported Location Lower Back Intensity 8 Scale Used Numeric (1 - 10) Description Aching Acute M4 OT- IP ADL's Start: 05/16/18 16:34 Freq: Status: Active Protocol: Document 05/17/18 11:12 PJM (Rec: 05/17/18 12:21 PJM [id number]) OT ADL-Grooming Comments OT Grooming Comments pt reports that she completed grooming tasks standing at sink earlier this AM OT ADL-Dressing General Eval Lower Body Dressing Ability Standby Assistance Minimal Assistance Areas Needing Assistance Underpants/Brief Socks Assistive Devices Dressing Assistive Devices Airbrush Painter Sock Aid Comments OT Dressing Comments Pt educated re: doffing socks with automotive lot attendant and use of sock aid to don them with min assist. Pt able to don underwear with automotive lot attendant with SBA after education. M7 OT- IP Mobility and Balance Start: 05/16/18 16:34 Freq: Status: Active Protocol: Document 05/17/18 11:12 PJM (Rec: 05/17/18 12:21 PJ [email or web address]) OT- Bed Mobility Assessment Rolling Type of Rolling Roll to Right Level of Assistance Standby Assistance Sit to Supine Sit to Supine Assist Minimal Assistance Scooting Scooting to Edge of Bed Standby Assistance OT-Transfer Assessment Sit to and From Stand Sit to and from Stand Contact Guard Assistance Transfers Transfer Ability Contact Guard Assistance Technique Transfer Destination Chair Transfer Technique Stand Step Pivot Devices Transfer Assistive Devices Gait Belt Front Wheeled Walker OT- Gait Assessment Gait Gait Assistance Required: Contact Guard Assist Distance (Feet) 3 Assistive Devices Assistive Device Gait Belt Front Wheeled Walker OT- Balance Assessment Sitting Balance and Reactions Static Sitting Balance Ability Good Dynamic Sitting Balance Ability Good Standing Balance and Reactions Static Standing Balance Ability Good Dynamic Standing Balance Ability Good Comments Other Balance Tests/Deviations/Treatment during lower body clothing management M9 OT- IP Assessment and Plan Start: 05/16/18 16:34 Freq: Status: Active Protocol: Document 05/17/18 11:12 PJM (Rec: 05/17/18 12:21 [facility] [id number]) OT Summary Assessment and Plan Potential Rehabilitation Potential Good Summary Progress Towards Goals Slow Progress due to Pain Assessment Summary High pain levels limiting participation today, but pt progressing with lower body dressing skills with AED. Pt not safe to d/c home alone where she has limited social support. Recommend SNf at d/c for further subacute rehab services prior to return home. Goals Grooming Goal Standby Assistance Dressing Goal Minimal Assistance Long Handled [place] Airbrush Painter Sock Aid Toileting Goal Independent Bathing Goal Minimal Assistance Toilet Transfer Goal Contact Guard Assistance Shower Transfer Goal Contact Guard Assistance Patient/Caregiver Education Goal Demonstrate Post-Op Precautions Demonstrate Energy Conservation and Pacing OT-Other Goals Grooming to be done standing at sink with good body mechanics and no loss of balance Days to Meet Goals 2 Frequency of Treatment Frequency Of Treatment Once a Day Treatment Plan OT Treatment Plan ADL Training Functional Mobility Patient/Family Education Discharge Planning Discharge Recommendations OT Discharge Recommendations SNF Rehab Home Equipment Needs to be determined in next rehab setting
[2018-05-17] MEDS: DEXAMETHASONE 4 MG TABLET PO ×2 (13:06→17:35)
--- NOTE | 2018-05-17 15:36 | PC.NURSE ---
Pt uses call light to request assistance to toilet. Standby assistance into bathroom with good body mechanics. Able to void without difficulty. Rates pain 6/10 and reports this is improvement over earlier today. Reports goal as 4/10. Dressing to back is dry and intact. Reports good sensation to BL LE's.
--- NOTE | 2018-05-17 15:50 | PT.IPTN ---
Current Diagnoses Other idiopathic scoliosis, lumbar region (05/15/18) Spondylolisthesis, lumbar region (05/15/18) Spinal stenosis, lumbar region with neurogenic claudication (05/15/18) Arthrodesis status (05/15/18) Surgery Performed Operation Date: 05/15/18 11:15 Actual Procedures p L5-S1 Hemilaminectomy; L4-5 TLIF w/ Posterior Instrumentation(Not Applicable) - Rossy Cruz MD Physical Therapy Treatment Note M2 PT-IP Current Condition Start: 05/15/18 17:15 Freq: NEEDED Status: Active Protocol: Document 05/15/18 17:10 RCC (Rec: 05/15/18 17:31 RCC [email or web address]) Physical Therapy Current Condition Current Condition Evaluation Date 05/15/18 Treatment Diagnosis L4-5 fusion, impaired gait and mobility Onset Date 05/15/18 Precautions Lumbar Precautions Log Roll No Twisting Limit Bending Lifting Restriction of 10 lbs Gait Belt above Incisional Area M3 PT-IP Subjective Start: 05/15/18 17:15 Freq: NEEDED Status: Active Protocol: Document 05/17/18 15:50 GGD (Rec: 05/17/18 16:55 GGD [email or web address]) Subjective Physical Therapy Visit Type Type Treatment Note Visit Start Time 15:25 Visit Stop Time 15:50 Total Visit Minutes 25 Number of ASSEMBLYMAN OR WOMAN Visits 4 Physical Therapy Visit Comments Patient Comments Pt would like to walk and then go to bed. Therapy Pain Assessment Pain When Pain Assessed At Rest Pain Present Pain Present Pain Reported M4 PT-IP Mobility and Gait Start: 05/15/18 17:15 Freq: NEEDED Status: Active Protocol: Document 05/17/18 15:50 GGD (Rec: 05/17/18 16:55 GGD [email or web address]) PT-Bed Mobility Assessment Sit to Supine Sit to Supine Contact Guard Assistance Scooting Scooting to Edge of Bed Contact Guard Assistance PT-Transfer Assessment Sit to and From Stand Sit to and from Stand Contact Guard Assistance Equipment Transfer Assistive Device Gait Belt Front Wheeled Walker Transfers Transfer Destination Bed Transfer Ability Level of Assist Contact Guard Assistance Gait Assessment Gait Gait Assistance Required: Contact Guard Assist Distance (Feet) 130 Able to Maintain Weight Bearing Status Yes During Gait Assistive Devices Assistive Device Gait Belt Front Wheeled Walker Gait Deviations General Gait Pattern Decreased Stride Length Decreased Feet Clearance Flexed Trunk Factors Limiting Gait Function Factors Limiting Gait Function Decreased Activity Tolerance Decreased Strength Pain M5 PT-IP Objective Assessments Start: 05/15/18 17:15 Freq: NEEDED Status: Active Protocol: Document 05/15/18 17:10 RCC (Rec: 05/15/18 17:31 RCC [email or web address]) Orientation Orientation/Cognition Level of Alertness Alert Orientation Name Age Birthday Month Date Year Day of Week Place Situation Strength Lower Extremity Strength Assessment Within Functional Limits Sensation Assessment Comments Sensation Comments pt denies numbness/tingling except for L toes 1-3 when walking downhill M6 PT-IP Treatment Start: 05/15/18 17:15 Freq: NEEDED Status: Active Protocol: Document 05/17/18 15:50 GGD (Rec: 05/17/18 16:55 GGD [email or web address]) Physical Therapy Treatment Education Education Provided Precautions M7 PT-IP Assessment and Plan Start: 05/15/18 17:15 Freq: NEEDED Status: Active Protocol: Document 05/17/18 15:50 GGD (Rec: 05/17/18 16:55 GGD [email or web address]) PT Summary Assessment and Plan Summary Assessment Summary Pt improving with mobility. She had less pain with ambulation. She did need min cues with mobility. Frequency of Treatment Frequency Of Treatment Twice a Day Treatment Plan Physical Therapy Treatment Plan Bed Mobility Training Transfer Training Gait Training Therapeutic Exercise Post Op Education Discharge Planning Hot or Cold Pack Neuromuscular Re-ed Recommendations To Nursing Amount of Assist Needed 1 Person Assist Discharge Recommendations PT Discharge Recommendations SNF Rehab
--- NOTE | 2018-05-17 16:31 | PC.NURSE ---
Phone call to Francesca Purcell, provider who saw patient this morning. Discussed with provider pt's c/o itching and order for benadryl obtained. Also informed provider pt has both dilaudid and oxycodone on emar and has been receiving both today. Per Francesca Purcell, d/c po dilaudid as provider states pt stated this med did not work for her.
[2018-05-17] MEDS: diphenhydrAMINE 25 MG TABLET PO (16:38)
--- NOTE | 2018-05-17 16:42 | CM.DPC ---
Addendum entered by DAVIE García 05/17/18 16:45: To Clarify: Pt called [facility] today along with this REGISTRATION CLERK to confirm DCP. Original Note: DCP Cont: TC received from Arlette at [facility]; pt has been accepted and has called [facility] today to confirm this plan. This REGISTRATION CLERK met w/pt today, explained role and reassured her that [facility] had a bed for her admission there tomorrow. Answered a few questions for pt re: DC process and pt was very appreciative. Pt eager to DC to [facility] Sunday via cabulance. Following closely. DAVIE García
[2018-05-17] MEDS: QUETIAPINE 25 MG TABLET 50 MG PO (20:41)
[2018-05-17] MEDS: SENNOSIDES 8.6 MG TABLET 17.2 MG PO (20:42)
[2018-05-17] MEDS: TRAZODONE 50 MG TABLET 150 MG PO (20:43)
[2018-05-18] MEDS: DEXAMETHASONE 4 MG TABLET PO ×2 (00:13→06:14)
[2018-05-18] MEDS: OXYCODONE IR 5 MG TABLET 10 MG PO ×3 (04:23→10:57)
[2018-05-18] MEDS: CYCLOBENZAPRINE 10 MG TABLET PO ×2 (04:23→10:57)
[2018-05-18 05:23] VITALS: BP 149/77; PULSE 71; RESP 16; TEMP 36.3; O2SAT 99
[2018-05-18] MEDS: diphenhydrAMINE 25 MG TABLET PO (06:13)
[2018-05-18] MEDS: LEVOTHYROXINE 50 MCG TABLET PO (06:14)
[2018-05-18] MEDS: NICOTINE 7 MG PATCH TOP (06:14)
[2018-05-18] MEDS: LORazepam 1 MG TABLET PO (06:14)
[2018-05-18] MEDS: DEXTROAMPHETAMINE AMPHETAMINE 25 EACH PO (06:14)
[2018-05-18 07:42] VITALS: BP 152/80; PULSE 72; RESP 18; TEMP 36.2; O2SAT 97
[2018-05-18] MEDS: FLUTICASONE 120 SPRAY/16 GM SPRAY.SUSP NASAL (08:46)
[2018-05-18] MEDS: LORATADINE 10 MG TABLET PO (08:46)
[2018-05-18] MEDS: PRAZOSIN 1 MG CAPSULE 2 MG PO (08:46)
[2018-05-18] MEDS: GABAPENTIN 300 MG CAPSULE PO (08:46)
[2018-05-18] MEDS: DOCUSATE 100 MG CAPSULE PO (08:46)
[2018-05-18] MEDS: SODIUM CHLORIDE 0.9% FLUSH 10 ML IV (08:47)
[2018-05-18] MEDS: VENLAFAXINE ER 75 MG CAP 225 MG PO (08:47)
[2018-05-18] MEDS: ACETAMINOPHEN 325 MG TABLET 650 MG PO (08:53)
--- NOTE | 2018-05-18 09:25 | PT.IPTN ---
Current Diagnoses Other idiopathic scoliosis, lumbar region (05/15/18) Spondylolisthesis, lumbar region (05/15/18) Spinal stenosis, lumbar region with neurogenic claudication (05/15/18) Arthrodesis status (05/15/18) Surgery Performed Operation Date: 05/15/18 11:15 Actual Procedures p L5-S1 Hemilaminectomy; L4-5 TLIF w/ Posterior Instrumentation(Not Applicable) - Rossy Cruz MD Physical Therapy Treatment Note M2 PT-IP Current Condition Start: 05/15/18 17:15 Freq: NEEDED Status: Active Protocol: Document 05/15/18 17:10 RCC (Rec: 05/15/18 17:31 RCC [email or web address]) Physical Therapy Current Condition Current Condition Evaluation Date 05/15/18 Treatment Diagnosis L4-5 fusion, impaired gait and mobility Onset Date 05/15/18 Precautions Lumbar Precautions Log Roll No Twisting Limit Bending Lifting Restriction of 10 lbs Gait Belt above Incisional Area M3 PT-IP Subjective Start: 05/15/18 17:15 Freq: NEEDED Status: Active Protocol: Document 05/18/18 09:25 GGD (Rec: 05/18/18 12:01 GGD [id number]) Subjective Physical Therapy Visit Type Type Treatment Note Visit Start Time 09:00 Visit Stop Time 09:25 Total Visit Minutes 25 Number of SUGAR MIXER Visits 5 Physical Therapy Visit Comments Patient Comments Pt states she feeling better. Therapy Pain Assessment Pain When Pain Assessed At Rest Pain Present Pain Present Pain Reported Location Lower Back Intensity 7 Scale Used Numeric (1 - 10) M4 PT-IP Mobility and Gait Start: 05/15/18 17:15 Freq: NEEDED Status: Active Protocol: Document 05/18/18 09:25 GGD (Rec: 05/18/18 12:01 GGD [id number]) PT-Bed Mobility Assessment Rolling Type of Rolling Log Rolling Roll to Right Supine to Sit Supine to Sit Contact Guard Assistance Scooting Scooting to Edge of Bed Contact Guard Assistance PT-Transfer Assessment Sit to and From Stand Sit to and from Stand Contact Guard Assistance Equipment Transfer Assistive Device Gait Belt Front Wheeled Walker Transfers Transfer Destination Chair Toilet Transfer Ability Level of Assist Contact Guard Assistance Gait Assessment Gait Gait Assistance Required: Contact Guard Assist Distance (Feet) 130 Able to Maintain Weight Bearing Status Yes During Gait Assistive Devices Assistive Device Gait Belt Front Wheeled Walker Gait Deviations General Gait Pattern Decreased Stride Length Decreased Feet Clearance Flexed Trunk Factors Limiting Gait Function Factors Limiting Gait Function Decreased Activity Tolerance Decreased Strength Pain M5 PT-IP Objective Assessments Start: 05/15/18 17:15 Freq: NEEDED Status: Active Protocol: Document 05/15/18 17:10 RCC (Rec: 05/15/18 17:31 RCC [email or web address]) Orientation Orientation/Cognition Level of Alertness Alert Orientation Name Age Birthday Month Date Year Day of Week Place Situation Strength Lower Extremity Strength Assessment Within Functional Limits Sensation Assessment Comments Sensation Comments pt denies numbness/tingling except for L toes 1-3 when walking downhill M6 PT-IP Treatment Start: 05/15/18 17:15 Freq: NEEDED Status: Active Protocol: Document 05/18/18 09:25 GGD (Rec: 05/18/18 12:01 GGD [id number]) Physical Therapy Treatment Education Education Provided Precautions M7 PT-IP Assessment and Plan Start: 05/15/18 17:15 Freq: NEEDED Status: Active Protocol: Document 05/18/18 09:25 GGD (Rec: 05/18/18 12:01 GGD [id number]) PT Summary Assessment and Plan Summary Assessment Summary Pt improving with mobility. She needed less cues for mobility and safety. She has slow gait pace. Frequency of Treatment Frequency Of Treatment Twice a Day Recommendations To Nursing Amount of Assist Needed 1 Person Assist Discharge Recommendations PT Discharge Recommendations SNF Rehab
--- NOTE | 2018-05-18 10:21 | PM.DS.1 ---
History of Present Illness Date Patient Seen: 05/18/18 Time Patient Seen: 10:23 Chief complaint: [id number] Narrative: Details of the patient's H&P can be found in the electronic chart. Discharge Providers Date of admission: 05/15/18 08:52 Primary care physician: MOJGAN Harman Consults: 05/08/18 12:28 Consult to Pastoral Services Routine Comment: TLIF 05/15/18 Consult to Respiratory Therapy Evaluate & Treat Comment: Physician Instructions: Evaluate and treat 05/15/18 09:38 Consult to Pastoral Services Routine Comment: Post-op 05/15/18 13:45 Consult to Occupational Therapy Evaluate & Treat Comment: Physician Instructions: Evaluate and treat Consult to Physical Therapy Evaluate & Treat Comment: Physician Instructions: Evaluate and Treat Discharge provider: Magdalena Schaefer PA-C Discharge Date: 05/18/18 Summary Discharge Diagnosis: 1. Lumbar scoliosis 2. Lumbar spinal stenosis 3. Lumbar spondylosis with radiculopathy Hospital Course: Patient was admitted taken operating room where she had a lumbar fusion by Dr. Cruz. She recovered well as transferred for further care. First few days postop patient was slow to ambulate and having pain control issues. Postop day 3, she was [place] [facility] [place], [facility] for further rehab and therapy. She will follow up in office in 10-14 days. She will be discharged with a prescription for pain medication. Her restrictions are no lifting bending or twisting. Status at Discharge Cognitive/behavioral status at discharge: Alert and orient x3 Functional status at discharge: uses cane/walker Overall status at discharge: patient is not back to baseline Time Spent with Patient Less than 30 minutes Exam Vital Signs (past 8 hours): - 05/18/18 05:23 05/18/18 07:42 Temperature 97.4 F L 97.2 F L Pulse Rate 71 72 Respiratory Rate 16 18 Blood Pressure 149/77 H 152/80 H Pulse Oximetry 99 97 Oxygen Delivery Method Room Air Oxygen Flow Rate 0 Narrative Exam Narrative: Patient transferring from the bed to a chair with a walker. Alert orient x3. She is status however. Back dressing clean dry and intact. Some numbness in left 1st 2 toes. 5/5 BLE strength. Bilateral calves soft and nontender. Objective Labs Result Diagrams: 05/16/18 05:06 Discharge Plan Discharge Plan Patient Disposition: SNF Transfer to: [facility] Transportation: Facility vehicle I certify the postop hospital [place] [facility] [place] care is medically necessary on a continuing basis for any conditions for which he/ she received care during this hospitalization.: Yes The receiving facility has agreed to accept transfer and provide medical treatment.: Yes Discharge Med Rec/Prescriptions Prescriptions: New cyclobenzaprine 10 mg Tablet 10 mg PO Q6H PRN (Reason: Spasms) Qty: 40 RF: 0 acetaminophen 325 mg Tablet 650 mg PO Q6HR PRN (Reason: Pain, Mild (1-3)) Qty: 0 RF: 0 loratadine 10 mg Tablet 10 mg PO DAILY Qty: 0 RF: 0 diphenhydramine HCl [Allergy (diphenhydramine)] 25 mg Tablet 25 mg PO Q6HR PRN (Reason: Itching) Qty: 0 RF: 0 docusate sodium 100 mg Capsule 100 mg PO BID Qty: 0 RF: 0 nicotine 7 mg/24 hr Patch 24 Hour 7 mg Topical DAILY Qty: 0 RF: 0 oxycodone 5 mg Tablet 10 mg PO Q4H PRN (Reason: severe pain) Qty: 60 RF: 0 Continue venlafaxine 150 mg Capsule,Extended Release 24hr 225 mg PO DAILY RF: 0 trazodone 150 mg Tablet 150 mg PO BEDTIME RF: 0 gabapentin 300 mg Capsule 1 - 2 tab PO DAILY RF: 0 ranitidine HCl 150 mg Capsule 150 mg PO BID RF: 0 fluticasone [Flonase Allergy Relief] 50 mcg/actuation [place],Suspension 2 spray INTRANASAL DAILY RF: 0 prazosin 2 mg Capsule 2 mg PO TID RF: 0 quetiapine [Seroquel] 50 mg Tablet 50 mg PO BEDTIME RF: 0 levothyroxine 50 mcg Capsule 50 mcg PO DAILY RF: 0 lorazepam 1 mg Tablet 1 mg PO TID PRN (Reason: Anxiety) RF: 0 dextroamphetamine-amphetamine 10 mg Tablet 10 mg PO BID RF: 0 Discontinued cetirizine 10 mg Capsule 10 mg PO DAILY RF: 0 oxycodone 5 mg Capsule 5 mg PO TID PRN (Reason: Pain) RF: 0 Follow up/Referrals: Rossy Cruz MD [Physician] - (Follow-up as scheduled date in time. Contact office with any issues or concerns.) Discharge Health Status Brief summary of current health status: Patient underwent a lumbar fusion by Dr. Cruz to slow to ambulate. Needs further therapy and rehab. Multidrug resistant organism: No MDRO MDRO Verified by culture: Yes Precautions: [place] Provider Discharge Instructions Diet: Diet as Tolerated Liquid consistency: Normal/Thin Food texture: Regular Activity: Activity as tolerated. Restrictions on bending lifting or twisting. Cold/Heat Therapy: Apply ice to the extremity as needed for swelling and inflammation. Skin/Wound/Dressing Care Report to your healthcare provider any signs of infection, such as:: chills, fever, increased pain and unusual drainage Dressing: Keep dressing clean dry and intact. Special Rehabilitation Services Reason for rehabilitation: Post-operative therapy Rehab type: Physical therapy and Occupational therapy Restrictions to mobility: No lifting bending or twisting. Ambulate with assistance of a walker/cane. Discharge Data Primary Care Provider: Nuha Quarles Attending Provider: Rossy Cruz Admit Date/Time: 05/15/18 08:52 Quality VTE Deep Vein Thrombosis/Pulmonary Embolism Present on Admission: No
--- NOTE | 2018-05-18 10:28 | P.DS_ITS ---
History of Present Illness Date Patient Seen: 05/18/18 Time Patient Seen: 10:23 Chief complaint: [id number] Narrative: Details of the patient's H&P can be found in the electronic chart. Discharge Providers Date of admission: 05/15/18 08:52 Primary care physician: MOJGAN Harman Consults: 05/08/18 12:28 Consult to Pastoral Services Routine Comment: TLIF 05/15/18 Consult to Respiratory Therapy Evaluate & Treat Comment: Physician Instructions: Evaluate and treat 05/15/18 09:38 Consult to Pastoral Services Routine Comment: Post-op 05/15/18 13:45 Consult to Occupational Therapy Evaluate & Treat Comment: Physician Instructions: Evaluate and treat Consult to Physical Therapy Evaluate & Treat Comment: Physician Instructions: Evaluate and Treat Discharge provider: Magdalena Schaefer PA-C Discharge Date: 05/18/18 Summary Discharge Diagnosis: 1. Lumbar scoliosis 2. Lumbar spinal stenosis 3. Lumbar spondylosis with radiculopathy Hospital Course: Patient was admitted taken operating room where she had a lumbar fusion by Dr. Cruz. She recovered well as transferred for further care. First few days postop patient was slow to ambulate and having pain control issues. Postop day 3, she was discharged to a group home facility, [facility] for further rehab and therapy. She will follow up in office in 10-14 days. She will be discharged with a prescription for pain medication. Her restrictions are no lifting bending or twisting. Status at Discharge Cognitive/behavioral status at discharge: Alert and orient x3 Functional status at discharge: uses cane/walker Overall status at discharge: patient is not back to baseline Time Spent with Patient Less than 30 minutes Exam Vital Signs (past 8 hours): - 05/18/18 05:23 05/18/18 07:42 Temperature 97.4 F L 97.2 F L Pulse Rate 71 72 Respiratory Rate 16 18 Blood Pressure 149/77 H 152/80 H Pulse Oximetry 99 97 Oxygen Delivery Method Room Air Oxygen Flow Rate 0 Narrative Exam Narrative: Patient transferring from the bed to a chair with a walker. Alert orient x3. She is status however. Back dressing clean dry and intact. Some numbness in left 1st 2 toes. 5/5 BLE strength. Bilateral calves soft and nontender. Objective Labs Result Diagrams: 05/16/18 05:06 Discharge Plan Discharge Plan Patient Disposition: SNF Transfer to: [facility] Transportation: Facility vehicle I certify the postop hospital group home care is medically necessary on a continuing basis for any conditions for which he/ she received care during this hospitalization.: Yes The receiving facility has agreed to accept transfer and provide medical treatment.: Yes Discharge Med Rec/Prescriptions Prescriptions: New cyclobenzaprine 10 mg Tablet 10 mg PO Q6H PRN (Reason: Spasms) Qty: 40 RF: 0 acetaminophen 325 mg Tablet 650 mg PO Q6HR PRN (Reason: Pain, Mild (1-3)) Qty: 0 RF: 0 loratadine 10 mg Tablet 10 mg PO DAILY Qty: 0 RF: 0 diphenhydramine HCl [Allergy (diphenhydramine)] 25 mg Tablet 25 mg PO Q6HR PRN (Reason: Itching) Qty: 0 RF: 0 docusate sodium 100 mg Capsule 100 mg PO BID Qty: 0 RF: 0 nicotine 7 mg/24 hr Patch 24 Hour 7 mg Topical DAILY Qty: 0 RF: 0 oxycodone 5 mg Tablet 10 mg PO Q4H PRN (Reason: severe pain) Qty: 60 RF: 0 Continue venlafaxine 150 mg Capsule,Extended Release 24hr 225 mg PO DAILY RF: 0 trazodone 150 mg Tablet 150 mg PO BEDTIME RF: 0 gabapentin 300 mg Capsule 1 - 2 tab PO DAILY RF: 0 ranitidine HCl 150 mg Capsule 150 mg PO BID RF: 0 fluticasone [Flonase Allergy Relief] 50 mcg/actuation [place],Suspension 2 spray INTRANASAL DAILY RF: 0 prazosin 2 mg Capsule 2 mg PO TID RF: 0 quetiapine [Seroquel] 50 mg Tablet 50 mg PO BEDTIME RF: 0 levothyroxine 50 mcg Capsule 50 mcg PO DAILY RF: 0 lorazepam 1 mg Tablet 1 mg PO TID PRN (Reason: Anxiety) RF: 0 dextroamphetamine-amphetamine 10 mg Tablet 10 mg PO BID RF: 0 Discontinued cetirizine 10 mg Capsule 10 mg PO DAILY RF: 0 oxycodone 5 mg Capsule 5 mg PO TID PRN (Reason: Pain) RF: 0 Follow up/Referrals: Rossy Cruz MD [Physician] - (Follow-up as scheduled date in time. Contact office with any issues or concerns.) Discharge Health Status Brief summary of current health status: Patient underwent a lumbar fusion by Dr. Cruz to slow to ambulate. Needs further therapy and rehab. Multidrug resistant organism: No MDRO MDRO Verified by culture: Yes Precautions: [place] Provider Discharge Instructions Diet: Diet as Tolerated Liquid consistency: Normal/Thin Food texture: Regular Activity: Activity as tolerated. Restrictions on bending lifting or twisting. Cold/Heat Therapy: Apply ice to the extremity as needed for swelling and inflammation. Skin/Wound/Dressing Care Report to your healthcare provider any signs of infection, such as:: chills, fever, increased pain and unusual drainage Dressing: Keep dressing clean dry and intact. Special Rehabilitation Services Reason for rehabilitation: Post-operative therapy Rehab type: Physical therapy and Occupational therapy Restrictions to mobility: No lifting bending or twisting. Ambulate with assistance of a walker/cane. Discharge Data Primary Care Provider: Nuha Quarles Attending Provider: Rossy Cruz Admit Date/Time: 05/15/18 08:52 Quality VTE Deep Vein Thrombosis/Pulmonary Embolism Present on Admission: No
--- NOTE | 2018-05-18 11:00 | CM.DPC ---
DCP/continued: Reviewed chart. Received notification from Ortho/PA that patient is medically stable to d/c to SNF today. Met with patient to confirm plan. She confirms that she would like to go to [facility]. Placed call to Arlette at [facility] and she can accept. Orders, scripts, and signed hospital exempt PASRR faxed. Patient provided with Important Message from Medicare. Patient signed at approximately 10:00AM today. Patient scheduled to be picked up at approximately 11:30am via cabulance. RN updated. P: [facility] today. DAVIE Ramirez
--- NOTE | 2018-05-18 11:16 | PC.NURSE ---
Discharge: Called report to Arlette with updated status, discharge packet given to transporter, home meds returned to pt, wheeled out by [facility] staff.
--- NOTE | 2018-05-18 13:05 | OT.IP.TRT ---
Current Diagnoses Other idiopathic scoliosis, lumbar region (05/15/18) Spondylolisthesis, lumbar region (05/15/18) Spinal stenosis, lumbar region with neurogenic claudication (05/15/18) Arthrodesis status (05/15/18) Surgery Performed Operation Date: 05/15/18 11:15 Actual Procedures p L5-S1 Hemilaminectomy; L4-5 TLIF w/ Posterior Instrumentation(Not Applicable) - Rossy Cruz MD Occupational Therapy Treatment Note M3 OT- IP Subjective and Pain Start: 05/16/18 16:34 Freq: Status: Active Protocol: Document 05/18/18 12:45 [facility] (Rec: 05/18/18 13:05 [facility] [id number]) OT- Subjective Occupational Therapy Visit Type Type Treatment Note Visit Start Time 09:40 Visit Stop Time 10:30 Total Visit Minutes 50 Occupational Therapy Visit Comments Patient/Caregiver Goals Pt wanting to shower and ready to go to skilled rehab today. OT Pain Assessment Pain When Pain Assessed At Rest Pain Present Pain Present Denied Pain M4 OT- IP ADL's Start: 05/16/18 16:34 Freq: Status: Active Protocol: Document 05/18/18 12:45 [facility] (Rec: 05/18/18 13:05 [facility] [id number]) OT ADL-Dressing General Eval Upper Body Dressing Ability Standby Assistance Lower Body Dressing Ability Minimal Assistance Comments OT Dressing Comments Pt needing assist to tie her shoes and vc to incorporate back precautions for needs. Pt tends to twist, especially for reaching for items. OT ADL-Bathing Bathing Type Bathing Type Shower General Evaluation Bathing Ability Minimal Assistance Areas Needing Assistance Retrieving/Setting Up Items Wash/Dry Back Comments OT Bathing Comments Pt able to do most of her shower while sitting on the shower chair, SBA while standing for pericare needs and vc not to twist. M6 OT- IP Functional Cognition Start: 05/16/18 16:34 Freq: Status: Active Protocol: Document 05/18/18 12:45 [facility] (Rec: 05/18/18 13:05 [facility] [id number]) Cognitive Factors Limiting Selfcare Function Cognitive Ability Level of Alertness Alert Patient Orientation Name Place Situation Attention Span Ability Capable of Focused Attention Capable of Sustained Attention Ability to Follow Commands Able to Follow One Step Commands Memory Description Short Term Impaired Safety Awareness Decreased Ability to Apply Precautions Underestimates Need for Assistance Problem Solving Ability Needs Assist to Identify Solutions Executive Function Ability Unable to Remember Details Cognitive Comments Cognitive Assessment Comments Pt needing vc to slow down and incorporate back precautions for all Adl and functional mobility needs. Pt mainly forgets able the precaution of no twisting. M7 OT- IP Mobility and Balance Start: 05/16/18 16:34 Freq: Status: Active Protocol: Document 05/18/18 12:45 [facility] (Rec: 05/18/18 13:05 [facility] [id number]) OT-Transfer Assessment Sit to and From Stand Sit to and from Stand Standby Assistance Transfers Transfer Ability Standby Assistance Contact Guard Assistance Technique Transfer Destination Chair Shower Stall Transfer Technique Stand Step Pivot Devices Transfer Assistive Devices Gait Belt Front Wheeled Walker Comments Mobility Comments CGA while stepping over threshold of shower. VC to keep FWW in front of her at all times. OT- Balance Assessment Sitting Balance and Reactions Static Sitting Balance Ability Normal Dynamic Sitting Balance Ability Good Standing Balance and Reactions Static Standing Balance Ability Good Dynamic Standing Balance Ability Good M9 OT- IP Assessment and Plan Start: 05/16/18 16:34 Freq: Status: Active Protocol: Document 05/18/18 12:45 [facility] (Rec: 05/18/18 13:05 [facility] [id number]) OT Summary Assessment and Plan Potential Rehabilitation Potential Good Analytic Complexity at Evaluation Low Summary Progress Towards Goals Progressing Toward Goals Slow Progress due to Cognition Assessment Summary Pt still having trouble with incorporation of back precautions, pain , and going to skilled rehab today. Frequency of Treatment Frequency Of Treatment Once a Day Discharge Recommendations OT Discharge Recommendations SNF Rehab
== END 2018-05-18 11:30 | DRG 455 ==
PROVIDERS: Admitting Provider Orthopaedic Surgery Orthopaedic Surgery of the Spine; PCP Nurse Practitioner; Visit Provider Orthopaedic Surgery Orthopaedic Surgery of the Spine
PROC: 0SG00AJ Fusion of Lumbar Vertebral Joint with Interbody Fusion Device, Posterior Approach, Anterior Column, Open Approach (ICD-10-PCS; principal; 2018-05-15 11:15)
DX: M43.16 Spondylolisthesis, lumbar region (principal); M48.062 Spinal stenosis, lumbar region with neurogenic claudication; M41.26 Other idiopathic scoliosis, lumbar region; F32.9 Major depressive disorder, single episode, unspecified; I10 Essential (primary) hypertension; E03.9 Hypothyroidism, unspecified; F41.9 Anxiety disorder, unspecified; M96.1 Postlaminectomy syndrome, not elsewhere classified; M62.838 Other muscle spasm
CPT/HCPCS: 36415; 72100; 76001; 85014; 85018; 97116; 97161; 97165; 97530; 97535; C1776; C9290; J0131; J0330; J0690; J1100; J1170; J2060; J2250; J2405; J2704; J3010

== ENCOUNTER → 2020-03-28 13:48 | Outpatient (CLI) | payer MEDICARE, SELFPAY ==
[2018-05-15 16:00] VITALS: BMI 21.0
[2020-03-29 13:48] LABS: COVID19 Sendout Not Detected (Not Detect)
== END ==
PROVIDERS: PCP Nurse Practitioner; Visit Provider Physician Assistant
DX: Z11.59 Encounter for screening for other viral diseases (principal)
CPT/HCPCS: 87635

== ENCOUNTER 2020-03-31 10:00 | Inpatient (IN) | payer OTHER, SELFPAY ==
[2018-05-15 16:00] VITALS: BMI 21.0
[2020-03-23 12:44] VITALS: BMI 21.9
[2020-03-31] VITALS (17 sets, daily range): BP systolic 90–134; BP diastolic 57–85; PULSE 61–97; RESP 12–21; TEMP 36.1–36.4; O2SAT 74–100; BMI 21.2
--- NOTE | 2020-03-31 | DI.RAD.S_ITS ---
PROCEDURE: XR LUMBAR SPINE 2-3V INDICATIONS: L3-5 TLIF TECHNIQUE: 2 views of the lumbar spine were acquired. COMPARISON: [facility], CR, XR LUMBAR SPINE 2-3V, 05/15/2018, 10:24. FINDINGS: 2 limited intraoperative fluoroscopic images of the lumbar spine were acquired. There is posterior fusion from L3 through L5 and discectomies of L3-4 and L4-5. Alignment appears anatomic. No gross hardware complication noted. IMPRESSION: Intraoperative fluoroscopic support for posterior lumbar fusion of L3 through L5 without evidence for hardware complication. Please see procedural note for further details. Dictated by: Servando Street M.D. on 03/31/2020 at 17:06 Approved by: Servando Street M.D. on 03/31/2020 at 17:08
[2020-03-31] MEDS: LACTATED RINGERS 1,000 ML 42 ML IV ×2 (10:34→13:23)
[2020-03-31] MEDS: ACETAMINOPHEN 325 MG TABLET 975 MG PO (10:34)
--- NOTE | 2020-03-31 11:39 | PM.PREOP ---
Pre-operative Note COVID-19 COVID-19 status: Negative Result date/Date tested (Pos, Neg/Pending): 03/29/20 Interval Note History & Physical reviewed/Exam performed by Physician: Yes Changes to H&P: No
[2020-03-31] MEDS: CEFAZOLIN 2 GM/100 ML FROZ.PIGGY IV ×2 (12:04→19:46)
[2020-03-31] MEDS: BUPIVACAINE 0.25% W/ EPI 30 ML VIAL 60 ML INJ (12:45)
[2020-03-31] MEDS: BUPIVACAINE LIPOSOME 266 MG/20 ML VIAL INJ (12:45)
--- NOTE | 2020-03-31 14:57 | PM.OP.1 ---
Operative Date/Time/Diagnoses Date of procedure: 03/31/20 Time of procedure: 11:57 Pre-op diagnosis: 1. L3-4, L4-5 spinal stenosis 2. Hx of L4-5 fusion with hardware loosening 3. L4-5 pseudoarthrosis Post-op diagnosis: same Procedure & Clinicians Procedure: 1. L3-4 posterolateral and posterior interbody fusion 2. L3-4 posterior interbody cage placement 3. L4-5 posterior non-segmental instrumentation removal 4. L4-5 revision laminectomy with exploration of fusion 5. L3-4, L4-5 posterior segmental instrumentation with pedicle screw placement 6. L4-5 posterolatearl fusion 7. [place] of bone marrow from iliac crest through a separate incision 8. Utilization of microsurgical technique and operating microscope Same procedure as scheduled: Yes Indications: Patient has been having chronic back pain and worsening lumbar radiculopathy. Patient had prior lumbar fusion surgery and was doing well until approximately 6 months ago and started having worsening symptoms. CT of lumbar spine shows worsening L3-4 level stenosis with questionable hardware loosening at L4-5 level. Patient failed multiple conservative management with worsening pain weakness and numbness in her lower extremity. Patient has been having difficulty performing activity of daily living. After discussing risks benefits of treatment options, patient elected proceed with surgery. Surgeon: Rossy Cruz Gas Operations Superintendent: Danette Gonzalez'Brien Click Yes if Unassisted: No Anesthesia Type: General Operative Notes Closure Type: primary Specimen(s): none sent Prosthetic devices, grafts, tissues, transplants, or devices: Globus revolve screws, RIse cage Applied: catheter Estimated Blood Loss (mL): 150 Blood products transfused: none Procedure in detail: Patient was seen in the preoperative area. Risks and benefits of the surgery was discussed with the patient. Informed consent was obtained from the patient and placed in the chart. Surgical site was marked. Patient was taken to the operative room. General anesthesia was administered. Prophylactic antibiotic was given to the patient less than 30 min before the incision was made. Patient was placed into a prone position on the Kervin table. Patient's back was then prepped and draped in the sterile fashion. Time-out was performed at this time. Using patient's previous scar incision was made over the L3-4 L4-5 interval on the left side. Fascia was incised in line with skin incision. Patient's previously placed hardware over the L4-5 level was identified by dissecting down to the level the hardware using a Bovie and a Braun. The locking caps which was removed using globus screwdriver. The locking eren was then removed from the tulips of the pedicle screws using a Mae. The pedicle screws were then removed using the screwdriver. The screws were found to have good purchase at L4 level. The screws were found to be loose L5 level bilaterally. The Globus and MARS retractors was then placed into the wound and docked onto the L3 lamina using C-arm guidance. Using microsurgical technique and operating microscope a laminectomy facetectomy was performed by removing the L3 lamina and the L3-4 facet. Patient was found have severe central and neural foramen stenosis at L3-4 level. Total facetectomy was required to fully decompress the neural foramen along with bilateral laminectomies to decompress the central canal. This rendered the L3-4 level grossly unstable and require a fusion procedure at the same time. The disc space at L3-4 level was identified next. And a total diskectomy was performed at L3-4 level. The endplates were decorticated using a rasp and shaver. The total diskectomy and decortication was performed at L3-4 level in order to to accomplish a L3-4 fusion. The local bone from the laminectomy and facetectomy was saved for local bone grafting. After the total diskectomy and decortication was completed, Trifecta bone graft material was combined with local bone that was harvested earlier. At this time, a separate skin is incision was made over the iliac crest. A Jamshidi needle was inserted into the iliac crest through a separate skin incision. 5 cc of bone marrow aspiration was obtained through the separate skin incision using a Jamshidi needle from the iliac crest. The bone marrow aspiration was combined with local bone and the via cell bone grafting material. The bone grafting material was placed into the L3-4 interbody space along with a expandable cage. The cage was expanded to its maximum height using the torque limiting screwdriver. At this time a mirror image incision was made on the right side. The fascia was incised in line with the skin incision. Patient's previously placed hardware on the left side was then removed in the same fashion as it was on the right side. The hardware was also found to have good purchase. The fusion mass on the right side was exposed by performing a right-sided hemilaminectomy at L4-5 level. The hemilaminectomy was performed using the Kerrison rongeur to undercut the lamina as well removing additional epidural scar tissue for purpose of decompressing the epidural space. The fusion mass was explored and was found have visible motion indicating pseudoarthrosis. Globus MARS retractor was inserted and docked onto the L3-4, L4-5 posterolateral gutter. Using the power drill, posterior-lateral decortication was performed at L3-4, L4-5 level until bleeding cortical bone was identified. The remaining bone grafting material including additional DBM bone graft was placed into the L3-4, L4-5 posterior lateral gutter he order to accomplish posterolateral fusion at the L3-4, L4-5 level. Using the double C-arm technique, pedicle screws were placed into the L3-L4 and L5 pedicles bilaterally. This was done by placing the Jamshidi needle into the pedicles, then placing the guidewires over the Jamshidi needle, and finally placing the cannulated screws over the guidewires bilaterally. After the pedicle screws were placed, 2 titanium rods was locked into the heads of the pedicle screws using locking caps and torque limiting screwdriver. All 6 pedicle screws had solid purchase. After all the hardware was placed, and confirmed with AP and lateral C-arm imaging, the wound was then irrigated with sterile normal saline and packed with Ray-Jeromy gauze for 3 min to accomplish hemostasis. After the gauze was removed the deep fascia was closed with #1 Vicryl suture. The subcutaneous layer was closed with 2-0 Vicryl. The skin was closed with skin can. Patient tolerated the procedure well. There were no complications. Complications: none Post-operative Condition: stable Disposition: PACU Plan for aftercare: Admit to inpatient hospital
[2020-03-31] MEDS: HYDROMORPHONE 2 MG INJ IV ×4 (15:18→15:38)
[2020-03-31] MEDS: OXYCODONE IR 5 MG TABLET 10 MG PO ×3 (15:21→22:52)
[2020-03-31] MEDS: hydrOXYzine 50 MG/ML INJ 25 MG IM (15:32)
--- NOTE | 2020-03-31 16:06 | SUR.PHASEI ---
Report called to FLOOR RN, pt transported per bed to floor-
[2020-03-31] MEDS: SODIUM CHLORIDE 0.9% 1,000 ML 100 ML IV (17:40)
[2020-03-31] MEDS: clonazePAM 0.5 MG TABLET 1 MG PO (20:41)
[2020-03-31] MEDS: DOCUSATE 100 MG CAPSULE PO (20:41)
[2020-03-31] MEDS: SENNOSIDES 8.6 MG TABLET 17.2 MG PO (20:41)
[2020-03-31] MEDS: OXYCODONE ER 10 MG TAB PO (20:41)
[2020-03-31] MEDS: hydrOXYzine pamoate 25 MG CAPSULE PO (21:22)
--- NOTE | 2020-03-31 21:31 | RT ---
Refused need for MDI. Sats 98% on RA
[2020-03-31] MEDS: QUETIAPINE 25 MG TABLET 50 MG PO (22:22)
[2020-03-31] MEDS: HYDROMORPHONE 0.5 MG INJ IV (22:22)
[2020-03-31] MEDS: TRAZODONE 50 MG TABLET 150 MG PO (22:22)
[2020-04-01] VITALS (8 sets, daily range): BP systolic 83–116; BP diastolic 52–72; PULSE 56–80; RESP 15–18; TEMP 36.4–37.2; O2SAT 94–99
[2020-04-01] MEDS: OXYCODONE IR 5 MG TABLET 10 MG PO ×7 (01:52→20:38)
[2020-04-01] MEDS: hydrOXYzine pamoate 25 MG CAPSULE PO ×4 (01:53→14:40)
[2020-04-01] MEDS: HYDROMORPHONE 0.5 MG INJ IV ×7 (02:34→21:59)
[2020-04-01] MEDS: SODIUM CHLORIDE 0.9% 1,000 ML 100 ML IV (03:04)
[2020-04-01] MEDS: CEFAZOLIN 2 GM/100 ML FROZ.PIGGY IV (04:20)
[2020-04-01] MEDS: LEVOTHYROXINE 50 MCG TABLET PO (05:05)
[2020-04-01] MEDS: ACETAMINOPHEN 325 MG TABLET 650 MG PO (06:30)
[2020-04-01 06:32] LABS: Hematocrit 33.9 % (36-46); Hemoglobin 11.5 g/dL (12.0-16.0)
[2020-04-01] MEDS: OXYCODONE ER 10 MG TAB PO ×2 (08:20→20:38)
[2020-04-01] MEDS: LORATADINE 10 MG TABLET PO (08:20)
[2020-04-01] MEDS: PANTOPRAZOLE 40 MG TABLET PO (08:20)
[2020-04-01] MEDS: clonazePAM 0.5 MG TABLET 1 MG PO ×3 (08:20→20:38)
[2020-04-01] MEDS: DOCUSATE 100 MG CAPSULE PO ×2 (08:20→20:38)
--- NOTE | 2020-04-01 08:20 | PM.PN.1 ---
Exam Vital Signs (past 8 hours): - 04/01/20 01:14 04/01/20 04:34 Temperature 97.5 F L 97.5 F L Pulse Rate 59 L 56 L Respiratory Rate 18 18 Blood Pressure 108/72 100/60 Pulse Oximetry 95 99 Oxygen Delivery Method Nasal Cannula Oxygen Flow Rate 0 Objective Labs Result Diagrams: 04/01/20 06:13 Labs: Laboratory Results - last 24 hr 04/01/20 06:13 Hgb 11.5 L Hct 33.9 L Assessment & Plan Assessment & Plan narrative: POD#1 s/p lumbar revision fusion. Pain well controlled. Dressing clean and dry intact. Neuro intact. Will do PT/OT today. Possible d/c tomorrow to home. Quality VTE Deep Vein Thrombosis/Pulmonary Embolism Present on Admission: No
[2020-04-01] MEDS: NICOTINE 7 MG PATCH TOP (08:26)
[2020-04-01] MEDS: PRAZOSIN 1 MG CAPSULE 2 MG PO (08:29)
[2020-04-01] MEDS: VENLAFAXINE ER 75 MG CAP 300 MG PO (08:30)
[2020-04-01] MEDS: FLUTICASONE 120 SPRAY/16 GM SPRAY.SUSP NASAL (10:04)
--- NOTE | 2020-04-01 11:00 | PT.IIE ---
Current Diagnoses Scoliosis, unspecified (03/31/20) Spondylosis without myelopathy or radiculopathy, lumbar region (03/31/20) Spinal stenosis, lumbar region without neurogenic claudication (03/31/20) Arthrodesis status (03/31/20) Surgery Performed Operation Date: 03/31/20 11:15 Actual Procedures p L4-5 lumbar hardware removal, exploration of fusion, repeat laminectomy, L3-4 TLIF, L3-5 PSF with instrumentation - Rossy Cruz MD Surgical History (Last Updated 03/23/20 @ 12:50 by Lina Ramírez RN) History of ankle surgery (Acute) History of lumbar fusion (Acute 05/15/18) Hx of discectomy (Acute) S/P wrist surgery (Acute) Medical History (Last Reviewed 05/15/18 @ 14:41 by Reid Watters) ADHD (Acute) Alcoholism (Acute) Arthritis (Acute) Back pain (Acute) Depression (Acute) Heartburn (Acute) Hypothyroidism (Acute) Numbness and tingling (Acute) PTSD (post-traumatic stress disorder) (Acute) Raynaud's disease (Acute) Sciatica (Acute) Scoliosis (Acute) Physical Therapy Inpatient Evaluation/Re-Eval M1 PT/OT-IP Prior Functional Status Start: 04/01/20 08:27 Freq: NEEDED Status: Active Protocol: Document 04/01/20 10:55 AW (Rec: 04/01/20 12:57 AW [email or web address]) Medical Review Prior Functional Status Medical History Reviewed Yes Communication WNL Mobility and Gait Pt reports painful, limited mobility. She typically does not use an assistive device. She tsai as close to store entrances as possible and will use a motorized cart if one is available but she is able to manage grocery store distances with a push cart. Activities of Daily Living and IADL's Pt lives alone and completes all ADL's independently though with some difficulty. She tends to wear slip on type shoes only and endorses increased difficulty with showering. Prior Functional Level (Other details) Pt had lumbar fusion in April 2018. She went to SN[facility] for rehab following that surgery and reports a history of multiple falls since that time. Social History Household Members none Living Arrangements Apartment/Condo Number of Stairs To Enter/Railing? Second floor apartment. To access the apartment, pt must climb 7 stairs + landing + 5 stairs all with unilateral rail. She then must descend three steps with unilateral rail to her unit. Home Environment Standard Height Toilet,Walk in Shower Home Equipment Front Wheel Walker,Academic Support Specialist Employment Status Unemployed Additional Social History Comment Pt lives alone. She has friends who will check on her when she discharges but there is no one who will stay with her. Her bed is tall but she does not use a stepstool to enter. M2 PT-IP Current Condition Start: 04/01/20 08:27 Freq: NEEDED Status: Active Protocol: Document 04/01/20 10:55 AW (Rec: 04/01/20 12:57 AW [email or web address]) Physical Therapy Current Condition Current Condition Evaluation Date 04/01/20 Treatment Diagnosis revision lumbar fusion; difficulty in walking Onset Date 03/31/20 Precautions Lumbar Precautions Log Roll,No Twisting,Limit Bending,Lifting Restriction of 10 lbs,Gait Belt above Incisional Area Other Precautions high falls risk M3 PT-IP Subjective Start: 04/01/20 08:27 Freq: NEEDED Status: Active Protocol: Document 04/01/20 10:55 AW (Rec: 04/01/20 12:57 AW [email or web address]) Subjective Physical Therapy Visit Type Type Initial Evaluation Visit Start Time 10:26 Visit Stop Time 10:55 Total Visit Minutes 29 Physical Therapy Visit Comments Patient Comments Pt is willing to participate with PT Patient Goals Pt hopes to return home at discharge when she is able to take care of herself. Therapy Pain Assessment Pain When Pain Assessed During Mobility Pain Present Pain Present Pain Reported Location Lower Back Intensity 8 Scale Used 8/10 at rest; unchanged with mobility Pain Management Techniques Apply Cold,Re-positioning, Timing of Activity with Medications M4 PT-IP Mobility and Gait Start: 04/01/20 08:27 Freq: NEEDED Status: Active Protocol: Document 04/01/20 10:55 AW (Rec: 04/01/20 12:57 AW [email or web address]) PT-Bed Mobility Assessment Rolling Type of Rolling Log Rolling,Roll to Left Level of Assist Standby Assistance Supine to Sit Supine to Sit Standby Assistance Scooting Scooting to Edge of Bed Standby Assistance PT-Transfer Assessment Sit to and From Stand Sit to and from Stand Contact Guard Assistance,1 Person Assistance,Use of Upper Extremities Equipment Transfer Assistive Device Gait Belt,Front Wheeled Walker Orthotic/Prosthetic Devices or Brace: No Transfers Transfer Destination Chair Transfer Technique pt ambulated with FWW Transfer Ability Level of Assist Standby Assistance,Use of Upper Extremities Comments Mobility Comments Pt was reclined in bed as PT arrived. Supine BP was 82/50 HR 67. She was able to log roll to her left side and complete SL to sit SBA with cues for sequencing. Sitting BP was 89/58 HR 77. Pt then completed sit to stand CGA using FWW and cues to push from the mattress instead of pulling on the walker. Pt was able to recall 2/3 back precautions at beginning of session and all 3/3 by the end . She ambulated around the unit for a total of 220 feet with FWW SBA before returning to the room. She transferred to the chair SBA and was positioned there with call light and all needs in reach. Gait Assessment Gait Gait Assistance Required: Standby Assistance Distance (Feet) 220 Able to Maintain Weight Bearing Status Yes During Gait Assistive Devices Assistive Device Gait Belt,Front Wheeled Walker Gait Deviations General Gait Pattern Antalgic,Decreased Stride Length,Decreased Feet Clearance,Flexed Trunk Factors Limiting Gait Function Factors Limiting Gait Function Decreased Activity Tolerance, Decreased Sensation,Decreased Strength,Limited Range of Motion,Pain,Poor Balance,Poor Safety Awareness Comments Gait Comments Pt ambulated slowly with FWW but with good attention to safety. She responded well to cues for posture and walker management. Stair Climbing Assessment Comments Stair Climbing Comments Not assessed due to pt pain. PT-Balance Assessment Sitting Balance and Reactions Static Sitting Balance Ability Normal Dynamic Sitting Balance Ability Good Standing Balance and Reactions Static Standing Balance Ability Good Dynamic Standing Balance Ability Good Device Used FWW M5 PT-IP Objective Assessments Start: 04/01/20 08:27 Freq: NEEDED Status: Active Protocol: Document 04/01/20 10:55 AW (Rec: 04/01/20 12:57 AW [email or web address]) Orientation Orientation/Cognition Level of Alertness Alert Orientation Name,Day of Week,Place, Situation Language Function Ability No Deficits Noted Safety Awareness Understands Safety Issues, Decreased Safety Awareness Memory Description No Deficits Noted Gross Range of Motion Lower Extremity ROM Assessment Within Functional Limits Strength Lower Extremity Strength Assessment Bilaterally Impaired Hip 4-/5 Knee 4/5 Ankle 4+/5 Coordination Assessment Gross Coordination Gross Coordination WNL Sensation Assessment Sensation Gross Sensation WNL Comments Sensation Comments Pt denied any numbness/ tingling BLE. Muscle Tone Muscle Tone WNL Yes M6 PT-IP Treatment Start: 04/01/20 08:27 Freq: NEEDED Status: Active Protocol: Document 04/01/20 10:55 AW (Rec: 04/01/20 12:57 AW [email or web address]) Physical Therapy Treatment Education Education Provided Precautions,Weight Bearing Status,Post-Op Packet,Safety Other Treatments Other Treatment Performed Provided education on role of PT, plan of care, and safe use of FWW. M7 PT-IP Assessment and Plan Start: 04/01/20 08:27 Freq: NEEDED Status: Active Protocol: Document 04/01/20 10:55 AW (Rec: 04/01/20 12:57 AW [email or web address]) PT Summary Assessment and Plan Potential Rehabilitation Potential Good Status of Condition at Evaluation Evolving Summary Impairments Pain,ROM,Strength,Balance,Bed Mobility,Transfers,Gait, Activity Tolerance Assessment Summary Mariaelena is a 64 yo woman seen for PT evaluation on POD1 following revision lumbar fusion/TLIF. She is independent for moblity with short community distances at baseline. She lives alone in an apartment with many stairs to enter. On evalation, pt required SBA to CGA for all mobilties. She complains of 8/ 10 pain but moves well and with good attention to safety. PT anticipates this pt will be safe to discharge home with assist. Due to living alone, history of falls (including fallls on stairs), and number of stairs to enter apartment, pt would benefit from home health PT. Goals Bed Mobility Goal Independent Transfer Goal Independent,Front Wheeled Walker Gait Goal Independent,Front Wheel Walker Gait Distance 200 Other Goals - up/down 7 steps with L rail and SPC SBA; 5 steps with R rail and SPC SBA - all in sequence and SBA Days to Meet Goals 5 Frequency of Treatment Frequency Of Treatment Twice a Day Treatment Plan Physical Therapy Treatment Plan Bed Mobility Training,Transfer Training,Gait Training, Therapeutic Exercise,Balance Retraining,Post Op Education, Discharge Planning,Hot or Cold Pack,Neuromuscular Re-ed Other Recommendations and Next Treatment progress gait training; review Focus precautions; stairs when able Recommendations To Nursing Amount of Assist Needed Standby Assistance,1 Person Assist Discharge Recommendations PT Discharge Recommendations Home with Assistance,Home Health Equipment Needed for Home Before SPC Discharge Transportation Needs at Discharge Private Vehicle
--- NOTE | 2020-04-01 12:55 | PC.NURSE ---
Notified by SUPPLY CATALOGUER that patient had low BP, reassessed patient. Current BP 86/52 with HR 60, denies lightheadedness, dizziness or other complaint other than her current high pain level. (see pain assessment). Dr. Cruz notified, and order for LR 500cc IV bolus received. Continue to monitor.
[2020-04-01] MEDS: LACTATED RINGERS 500 ML 1000 ML IV (13:00)
--- NOTE | 2020-04-01 13:07 | CM.IDA ---
Initial DCP Assessment Note Patient is a 64 yo female, resident of [facility]. Patient is POD#1 from her TLIF w/ Dr Cruz PCP: Nuha Quarles Payer: L&I Met w/patient this morning, introduced role. Patient explains she lives alone. Patient is indp at her baseline but admits to getting fatigued quickly d/t chronic pain. Patient had a prior spinal surgery in 2018, she had DC to [facility] at that time. This spinal surgery has been authorized by L&I, 3 day LOS. Patient plans to return home w/ a friend for transport, her friend can check on her once home but is not capable of staying with her. Patient has stocked up on easy to fix/heat foods and asks about home health service ? Therapy team clearing patient for return home but do suggest home health upon DC, patient agreeable and requests this HABILITATION ASSISTANT go through L&I before attempting [facility] coverage. Placed call to L[facility]I LON Arriola# [phone], he suggested this HABILITATION ASSISTANT fax signed home health order to the Occupational RN (part of the L&I team) Attn: Lorene Arriola# [phone] F# [phone] F2F completed and signed and HH order electronically submitted, printed and faxed to number above. Awaiting CB from [place] re: HH agencies in network ? Patient has L&I auth for inpatient at through Sunday. DAVIE García Discharge Planning/Care Management CM Discharge Assessment Start: 04/01/20 12:58 Freq: Status: Active Protocol: Document 04/01/20 12:58 [email or web address] (Rec: 04/01/20 13:06 [id number]) Discharge Planning Assessment Assigned Farm Appraiser DAVIE Stephens DPOA/Assigned Designee Name tania June Contact Information [phone] Advance Directives? No Advance Directives on File No History Provided By Patient Prior Living Arrangements Apartment/Condo Household Members none Type of transporation used prior to Drives own vehicle admit Independent with ADL's Yes: Fatigues quickly w/ ambulation Is patient alert and oriented? Yes Patient/Family Preference Home with Home Health Comment Lives alone, PT/OT: Home w/HH Transportation Arrangement Friend Additional Comment Attempting to discuss home health w/L&I case coordinator Chuy
--- NOTE | 2020-04-01 15:13 | PT.IPTN ---
Current Diagnoses Scoliosis, unspecified (03/31/20) Spondylosis without myelopathy or radiculopathy, lumbar region (03/31/20) Spinal stenosis, lumbar region without neurogenic claudication (03/31/20) Arthrodesis status (03/31/20) Surgery Performed Operation Date: 03/31/20 11:15 Actual Procedures p L4-5 lumbar hardware removal, exploration of fusion, repeat laminectomy, L3-4 TLIF, L3-5 PSF with instrumentation - Rossy Cruz MD Physical Therapy Treatment Note M2 PT-IP Current Condition Start: 04/01/20 08:27 Freq: NEEDED Status: Active Protocol: Document 04/01/20 10:55 AW (Rec: 04/01/20 12:57 AW [email or web address]) Physical Therapy Current Condition Current Condition Evaluation Date 04/01/20 Treatment Diagnosis revision lumbar fusion; difficulty in walking Onset Date 03/31/20 Precautions Lumbar Precautions Log Roll,No Twisting,Limit Bending,Lifting Restriction of 10 lbs,Gait Belt above Incisional Area Other Precautions high falls risk M3 PT-IP Subjective Start: 04/01/20 08:27 Freq: NEEDED Status: Active Protocol: Document 04/01/20 14:56 AW (Rec: 04/01/20 15:13 AW [email or web address]) Subjective Physical Therapy Visit Type Type Treatment Note Visit Start Time 14:30 Visit Stop Time 14:55 Total Visit Minutes 25 Notes Coordinated with RN for pain med administration per pt request. Physical Therapy Visit Comments Patient Comments Pt is willing to participate with PT Therapy Pain Assessment Pain When Pain Assessed During Mobility Pain Present Pain Present Pain Reported Location Lower Back Intensity 9 Scale Used 9/10 at rest; unchanged with mobility Pain Management Techniques Re-positioning,Timing of Activity with Medications M4 PT-IP Mobility and Gait Start: 04/01/20 08:27 Freq: NEEDED Status: Active Protocol: Document 04/01/20 14:56 AW (Rec: 04/01/20 15:13 AW [email or web address]) PT-Bed Mobility Assessment Rolling Type of Rolling Log Rolling,Roll to Left Supine to Sit Supine to Sit Standby Assistance Scooting Scooting to Edge of Bed Standby Assistance PT-Transfer Assessment Sit to and From Stand Sit to and from Stand Standby Assistance,1 Person Assistance,Use of Upper Extremities Equipment Transfer Assistive Device Gait Belt,Front Wheeled Walker Orthotic/Prosthetic Devices or Brace: No Transfers Transfer Destination Bed Transfer Technique pt ambulated with FWW Transfer Ability Level of Assist Standby Assistance,Use of Upper Extremities Comments Mobility Comments Pt was with the RN receiving her pain meds as PT arrived. Pt rported 04/01Supine BP was 111/78 and pt was asymptomatic . She completed log roll to sitting on the left side of the bed SBA. She stood from the bed in lowest position and ambulated around the [facility] for a total of 220 feet with FWW SBA. She participated in stair training and then returned to the room . Her sitting tolerance is poor. PT explained that OT would be in soon and it might be easier for her to sit in the chair for a few minutes, but pt preferred to go back to bed. She completed reverse log roll to supine SBA. Bed alarm was armed for safety. OT arriving soon. Gait Assessment Gait Gait Assistance Required: Standby Assistance Distance (Feet) 220 Able to Maintain Weight Bearing Status Yes During Gait Assistive Devices Assistive Device Gait Belt,Front Wheeled Walker Gait Deviations General Gait Pattern Antalgic,Decreased Stride Length,Decreased Feet Clearance,Flexed Trunk Factors Limiting Gait Function Factors Limiting Gait Function Decreased Activity Tolerance, Decreased Sensation,Decreased Strength,Limited Range of Motion,Pain,Poor Balance,Poor Safety Awareness Stair Climbing Assessment Evaluation Level of Assist On Stairs Contact Guard Assistance Devices Stair Climbing Assistive Devices Left Railing,Right Railing Technique/Endurance Stair Climbing Direction Ascend and Descend Stair Climbing Technique Step Over Step,Step to Step Number of Steps Climbed 3 Stair Climbing Set # Repetitions (reps) 2 Comments Stair Climbing Comments Pt used step over step pattern ascending and step to pattern descending with bilateral rails CGA. Pt will need to complete stairs with unilateral rail and SPC (or unilateral rail alone) prior to discharge. M5 PT-IP Objective Assessments Start: 04/01/20 08:27 Freq: NEEDED Status: Active Protocol: Document 04/01/20 10:55 AW (Rec: 04/01/20 12:57 AW [email or web address]) Orientation Orientation/Cognition Level of Alertness Alert Orientation Name,Day of Week,Place, Situation Language Function Ability No Deficits Noted Safety Awareness Understands Safety Issues, Decreased Safety Awareness Memory Description No Deficits Noted Gross Range of Motion Lower Extremity ROM Assessment Within Functional Limits Strength Lower Extremity Strength Assessment Bilaterally Impaired Hip 4-/5 Knee 4/5 Ankle 4+/5 Coordination Assessment Gross Coordination Gross Coordination WNL Sensation Assessment Sensation Gross Sensation WNL Comments Sensation Comments Pt denied any numbness/ tingling BLE. Muscle Tone Muscle Tone WNL Yes M6 PT-IP Treatment Start: 04/01/20 08:27 Freq: NEEDED Status: Active Protocol: Document 04/01/20 14:56 AW (Rec: 04/01/20 15:13 AW [email or web address]) Physical Therapy Treatment Education Education Provided Precautions,Safety Other Treatments Other Treatment Performed Pt able to recall 2/3 back precautions. She struggles to remember no twisting. M7 PT-IP Assessment and Plan Start: 04/01/20 08:27 Freq: NEEDED Status: Active Protocol: Document 04/01/20 14:56 AW (Rec: 04/01/20 15:13 AW [email or web address]) PT Summary Assessment and Plan Summary Impairments Pain,ROM,Strength,Balance,Bed Mobility,Transfers,Gait, Activity Tolerance Progress Towards Goals Progressing Toward Goals Assessment Summary Pt tolerates bed mobility and ambulation with FWW. Gait has good michi but is slow. Pt was able to climb stairs with bilateral rails but willl need to do so with unilateral rail and SPC vs unilateral rail before discharge. Pt will need order for SPC to be dispensed prior to discharge if using cane for stairs. Goals Bed Mobility Goal Independent Transfer Goal Independent,Front Wheeled Walker Gait Goal Independent,Front Wheel Walker Gait Distance 200 Other Goals - up/down 7 steps with L rail and SPC SBA; 5 steps with R rail and SPC SBA - all in sequence and SBA Days to Meet Goals 5 Frequency of Treatment Frequency Of Treatment Twice a Day Treatment Plan Physical Therapy Treatment Plan Bed Mobility Training,Transfer Training,Gait Training, Therapeutic Exercise,Balance Retraining,Post Op Education, Discharge Planning,Hot or Cold Pack,Neuromuscular Re-ed Other Recommendations and Next Treatment progress gait training; review Focus precautions; stairs with unilateral rail and SPC; order for SPC? Recommendations To Nursing Amount of Assist Needed 1 Person Assist Discharge Recommendations PT Discharge Recommendations Home with Assistance,Home Health Equipment Needed for Home Before SPC Discharge Transportation Needs at Discharge Private Vehicle
--- NOTE | 2020-04-01 15:20 | PC.NURSE ---
Patient moving well with P.T., ambulated in hallways with walker and SB assistance, tolerated well. Patient did not tolerate sitting up in chair well today, she states that this has been her problem chronically and is her most difficult thing. Patient was able to sit up in chair for approximately 30 minutes before wanting to get back into bed. Patient awake and talkative today, rates pain consistently at an 8/10, but appears comfortable and able to move easily in bed. She reports to Dr. Cruz that her pain management has been better this time around than previously. Call light within reach.
--- NOTE | 2020-04-01 15:23 | OT.IP.EVAL ---
Current Diagnoses Scoliosis, unspecified (03/31/20) Spondylosis without myelopathy or radiculopathy, lumbar region (03/31/20) Spinal stenosis, lumbar region without neurogenic claudication (03/31/20) Arthrodesis status (03/31/20) Surgery Performed Operation Date: 03/31/20 11:15 Actual Procedures p L4-5 lumbar hardware removal, exploration of fusion, repeat laminectomy, L3-4 TLIF, L3-5 PSF with instrumentation - Rossy Cruz MD Past Medical History (Last Reviewed 05/15/18 @ 14:41 by Reid Watters) ADHD (Acute) Alcoholism (Acute) Arthritis (Acute) Back pain (Acute) Depression (Acute) Heartburn (Acute) Hypothyroidism (Acute) Numbness and tingling (Acute) PTSD (post-traumatic stress disorder) (Acute) Raynaud's disease (Acute) Sciatica (Acute) Scoliosis (Acute) Surgical History (Last Updated 03/23/20 @ 12:50 by Lina Ramírez RN) History of ankle surgery (Acute) History of lumbar fusion (Acute 05/15/18) Hx of discectomy (Acute) S/P wrist surgery (Acute) Occupational Therapy Inpatient Evaluation/Re-Eval M1 PT/OT-IP Prior Functional Status Start: 04/01/20 15:26 Freq: NEEDED Status: Active Protocol: Document 04/01/20 15:00 [facility] (Rec: 04/01/20 15:56 [facility] [id number]) Medical Review Prior Functional Status Medical History Reviewed Yes Communication WNL Mobility and Gait Pt reports painful, limited mobility. She typically does not use an assistive device. She tsai as close to store entrances as possible and will use a motorized cart if one is available but she is able to manage grocery store distances with a push cart. Activities of Daily Living and IADL's Pt lives alone and completes all ADL's independently though with some difficulty. She tends to wear slip on type shoes only and endorses increased difficulty with showering. Prior Functional Level (Other details) Pt had lumbar fusion in April 2018. She went to SNF for rehab following that surgery and reports a history of multiple falls since that time. Social History Household Members none Living Arrangements Apartment/Condo Number of Stairs To Enter/Railing? Second floor apartment. To access the apartment, pt must climb 7 stairs + landing + 5 stairs all with unilateral rail. She then must descend three steps with unilateral rail to her unit. Home Environment Standard Height Toilet,Walk in Shower Home Equipment Front Wheel Walker,Squeegee Finisher Employment Status Unemployed Additional Social History Comment Pt lives alone. She has friends who will check on her when she discharges but there is no one who will stay with her. Her bed is tall but she does not use a stepstool to enter. M2 OT-IP Current Condition Start: 04/01/20 15:26 Freq: Status: Active Protocol: Document 04/01/20 15:00 [facility] (Rec: 04/01/20 15:56 [facility] [id number]) Occupational Therapy Current Condition Current Condition Evaluation Date 04/01/20 Treatment Diagnosis Spinal Stenosis, s/p lumbar revision fusion L3-4 TLIF, L3- 5 PSF Diagnosis Onset Date 03/31/20 Post Operative Precautions Lumbar Precautions Log Roll,No Twisting,Limit Bending,Lifting Restriction of 10 lbs,Gait Belt above Incisional Area M3 OT- IP Subjective and Pain Start: 04/01/20 15:26 Freq: Status: Active Protocol: Document 04/01/20 15:00 [facility] (Rec: 04/01/20 15:56 [facility] [id number]) OT- Subjective Occupational Therapy Visit Type Type Initial Evaluation Visit Start Time 15:00 Visit Stop Time 15:23 Occupational Therapy Visit Comments Patient Comments Pt just finished seeing PT and agreed to get up for OT eval. Patient/Caregiver Goals To go home OT Pain Assessment Pain When Pain Assessed At Rest Pain Present Pain Present Pain Reported Location Lower Back Intensity 7 Scale Used Numeric (0 - 10) M4 OT- IP ADL's Start: 04/01/20 15:26 Freq: Status: Active Protocol: Document 04/01/20 15:00 [facility] (Rec: 04/01/20 15:56 [facility] [id number]) OT [id number] Comments OT Self-Feeding Comments NOt at meal time. OT ADL-Grooming Comments OT Grooming Comments Note performed. OT ADL-Dressing Comments OT Dressing Comments Pt issued sock aid and long handled shoe horn and sponge. To practice tomorrow after shower. OT ADL-Toileting General Evaluation Toileting Ability Standby Assistance Comments OT Toileting Comments Pt states usually wipes from the front. Educated to pt best to stand to wipe or if able to lean to the side while keeping her back straight to wipe. Pt states was easier to squat/stand and wipe for now. OT ADL-Bathing Comments OT Bathing Comments TO perform tomorrow. M5 OT- IP IADL's Start: 04/01/20 15:26 Freq: Status: Active Protocol: Document 04/01/20 15:00 [facility] (Rec: 04/01/20 15:56 [facility] [id number]) OT-Instrumental Activities of Daily Living Medication Management Medication Management Comments Pt states prior able to do for herself prior. Money Management Money Management Comments Pt states was independent prior. Meal Preparation Meal Preparation Comments Pt states to have frozen meals . Suggested to have friend pull table closer to counter in the kitchen so not having to carry her food and walk with the walker at the same time. Driving Driving Comments Pt states to do paratransit for now. M6 OT- IP Functional Cognition Start: 04/01/20 15:26 Freq: Status: Active Protocol: Document 04/01/20 15:00 [facility] (Rec: 04/01/20 15:56 [facility] [id number]) Cognitive Factors Limiting Selfcare Function Cognitive Ability Level of Alertness Alert Patient Orientation Name,Place,Situation Attention Span Ability Capable of Focused Attention, Capable of Sustained Attention Ability to Follow Commands Able to Follow One Step Commands Memory Description Short Term Impaired Safety Awareness Decreased Ability to Apply Precautions Problem Solving Ability Needs Assist to Identify Solutions Cognitive Comments Cognitive Assessment Comments Pt able to follow one step commands. Pt able to recall 2/ 3 back precautions and not able to recall that the PT gave her a back folder today. Pt needing reminders to incorporate her back precautions during ADl needs. OT- Vision and Hearing OT- Hearing Assessment OT- Hearing Assessment WFL M7 OT- IP Mobility and Balance Start: 04/01/20 15:26 Freq: Status: Active Protocol: Document 04/01/20 15:00 [facility] (Rec: 04/01/20 15:56 [facility] [id number]) OT- Bed Mobility Assessment Rolling Type of Rolling Roll to Left Supine to Sit Supine to Sit Assist Standby Assistance,1 Person Assistance Sit to Supine Sit to Supine Assist Standby Assistance,1 Person Assistance OT-Transfer Assessment Sit to and From Stand Sit to and from Stand Standby Assistance Transfers Transfer Ability Standby Assistance Technique Transfer Destination Bed,Chair,Toilet Transfer Technique Stand Step Pivot Devices Transfer Assistive Devices Gait Belt,Front Wheeled Walker Comments Mobility Comments Pt needing reminder to roll all the way over to her side to prevent from twisting while getting up and down from sidelying in bed. Pt able get on and off the high bed when simulating bed height of her bed at home. OT- Gait Assessment Comments Gait Ability Comments SBA with FWW OT- Balance Assessment Sitting Balance and Reactions Static Sitting Balance Ability Normal Dynamic Sitting Balance Ability Good Standing Balance and Reactions Static Standing Balance Ability Good Dynamic Standing Balance Ability Fair M8 OT- IP Objective Assessments Start: 04/01/20 15:26 Freq: Status: Active Protocol: Document 04/01/20 15:00 [facility] (Rec: 04/01/20 15:56 [facility] [id number]) OT Gross Range of Motion Upper Extremity Range of Motion Assessment Within Functional Limits OT-Muscle Tone Assessment Muscle Tone WNL Yes M9 OT- IP Assessment and Plan Start: 04/01/20 15:26 Freq: Status: Active Protocol: Document 04/01/20 15:00 [facility] (Rec: 04/01/20 15:56 [facility] [id number]) OT Summary Assessment and Plan Potential Rehabilitation Potential Good Analytic Complexity at Evaluation Low Summary OT Impairments Pain,Functional Cognition, Functional Mobility,Dressing, Toileting,Bathing,Toilet Transfers,Shower Transfers Progress Towards Goals Progressing Toward Goals Assessment Summary Pt low complexity and main barriers are steps and needing reminders to incorporate her back precautions during bed mobility and ADl needs. Pt to have friends assist at home but no one to stay with her at this time. Recommend short skilled rehab versus home with home health pending her progress and safety of incorporating back precautions for all needs. Goals Self-Feeding Goal Independent Grooming Goal Independent Dressing Goal Independent Toileting Goal Independent Bathing Goal Independent Toilet Transfer Goal Independent Shower Transfer Goal Independent Patient/Caregiver Education Goal Demonstrate Post-Op Precautions Days to Meet Goals 7 Frequency of Treatment Frequency Of Treatment Twice a Day Treatment Plan OT Treatment Plan ADL Training,Functional Cognition Training,Functional Mobility,Patient/Family Education,Discharge Planning Other Treatment Recommendations and Next shower and practice with LB Treatment Focus dressing equipment Discharge Recommendations OT Discharge Recommendations Home with Assistance,Home Health,SNF Rehab Home Equipment Needs shower chair Transportation Needs at Discharge Private Vehicle
[2020-04-01] MEDS: SODIUM CHLORIDE 0.9% FLUSH 10 ML IV (19:53)
[2020-04-01] MEDS: SENNOSIDES 8.6 MG TABLET 17.2 MG PO (20:38)
[2020-04-01] MEDS: QUETIAPINE 25 MG TABLET 50 MG PO (21:54)
[2020-04-01] MEDS: TRAZODONE 50 MG TABLET 150 MG PO (21:54)
--- NOTE | 2020-04-01 23:37 | PC.NURSE ---
pt took own meds? 2300 This RN in pt's room to take pt for a walk in hallway. While this RN ambulating with pt, WOOD HEEL FLAP INSERTER was making pt's bed and moved pt's coat off of her bed (as pt has been wearing her coat in bed) and found a bottle of oxycodone and marijuana pen/vape in coats pocket. both were confiscated, labeled and sent to pharmacy. Coordinator and nursing track inspecting supervisor aware of the same. Removal of items witnessed by Florina Morse. Pt has been mostly resting comfortably this shift with some confusion and erratic behaviors (triggering bed alarm frequently).
[2020-04-02] MEDS: LORazepam 1 MG TABLET PO ×2 (04:25→13:19)
[2020-04-02] MEDS: OXYCODONE IR 5 MG TABLET 10 MG PO ×2 (04:25→11:07)
[2020-04-02] MEDS: ACETAMINOPHEN 325 MG TABLET 650 MG PO ×2 (04:26→13:19)
[2020-04-02 04:50] VITALS: BP 102/61; PULSE 78; RESP 20; TEMP 38.3; O2SAT 96
--- NOTE | 2020-04-02 04:56 | PC.NURSE ---
Pt slept soundly after initial assessment at about 11pm, until almost 0430 am when pt complained of pain, nurse administered prn pain meds and about 15 mins later pt was yelling from her bed that she was missing something from her coat pocket. The nurse and milk bottling machine operator went into the pt's room and the pt explained that she had a bottle of prescription pills that she says Dr Cruz told her to bring with her, the nurse assured her that the nurse on the previous shift reported a bottle was found on her floor earlier that day and locked in pharmacy. Pt then said she also was missing a vape pen as well, and the nurse assured the pt that it would be in pharmacy and the pt was notified that smoking devices are not allowed in the hospital. The pt calmed down and said that she felt like she would be needing more pain meds, nurse reassured her that her pain would be reassessed and addressed per providers orders.
[2020-04-02] MEDS: HYDROMORPHONE 0.5 MG INJ IV (05:21)
[2020-04-02] MEDS: LEVOTHYROXINE 50 MCG TABLET PO (06:36)
[2020-04-02 08:38] VITALS: BP 87/53; PULSE 59; RESP 16; TEMP 37; O2SAT 97
[2020-04-02 08:57] VITALS: PULSE 61; RESP 16; O2SAT 98
[2020-04-02] MEDS: NICOTINE 7 MG PATCH TOP (09:08)
[2020-04-02] MEDS: PANTOPRAZOLE 40 MG TABLET PO (09:08)
[2020-04-02] MEDS: clonazePAM 0.5 MG TABLET 1 MG PO (09:08)
[2020-04-02] MEDS: FLUTICASONE 120 SPRAY/16 GM SPRAY.SUSP NASAL (09:08)
[2020-04-02] MEDS: DOCUSATE 100 MG CAPSULE PO (09:08)
[2020-04-02] MEDS: LORATADINE 10 MG TABLET PO (09:08)
[2020-04-02] MEDS: SODIUM CHLORIDE 0.9% FLUSH 10 ML IV (09:10)
[2020-04-02] MEDS: VENLAFAXINE ER 75 MG CAP 300 MG PO (09:11)
[2020-04-02 09:21] VITALS: BP 94/54; PULSE 64
[2020-04-02] MEDS: OXYCODONE ER 10 MG TAB PO (09:26)
--- NOTE | 2020-04-02 10:48 | OT.IP.TRT ---
Current Diagnoses Scoliosis, unspecified (03/31/20) Spondylosis without myelopathy or radiculopathy, lumbar region (03/31/20) Spinal stenosis, lumbar region without neurogenic claudication (03/31/20) Arthrodesis status (03/31/20) Surgery Performed Operation Date: 03/31/20 11:15 Actual Procedures p L4-5 lumbar hardware removal, exploration of fusion, repeat laminectomy, L3-4 TLIF, L3-5 PSF with instrumentation - Rossy Cruz MD Occupational Therapy Treatment Note M2 OT-IP Current Condition Start: 04/01/20 15:26 Freq: Status: Active Protocol: Document 04/01/20 15:00 [facility] (Rec: 04/01/20 15:56 [facility] [id number]) Occupational Therapy Current Condition Current Condition Evaluation Date 04/01/20 Treatment Diagnosis Spinal Stenosis, s/p lumbar revision fusion L3-4 TLIF, L3- 5 PSF Diagnosis Onset Date 03/31/20 Post Operative Precautions Lumbar Precautions Log Roll,No Twisting,Limit Bending,Lifting Restriction of 10 lbs,Gait Belt above Incisional Area M3 OT- IP Subjective and Pain Start: 04/01/20 15:26 Freq: Status: Active Protocol: Document 04/02/20 11:35 [facility] (Rec: 04/02/20 11:50 [facility] [id number]) OT- Subjective Occupational Therapy Visit Type Type Progress Note Visit Start Time 10:35 Visit Stop Time 10:48 Total Visit Minutes 13 Occupational Therapy Visit Comments Patient Comments I have been wanting to brush my teeth all day. OT Pain Assessment Pain When Pain Assessed During Mobility Pain Present Pain Present Pain Reported Location Lower Back Intensity 9 Scale Used Numeric (0 - 10) Management Techniques Distraction,Modification of Treatment,Re-positioning M4 OT- IP ADL's Start: 04/01/20 15:26 Freq: Status: Active Protocol: Document 04/02/20 11:35 [facility] (Rec: 04/02/20 11:50 [facility] [id number]) OT [id number] Comments OT Self-Feeding Comments Not meal time OT ADL-Grooming General Evaluation Grooming Ability Standby Assistance Areas Needing Assistance Combing/Brushing Hair,Face Washing Comments OT Grooming Comments standing at sink OT ADL-Oral Care General Eval Oral Care Ability Standby Assistance Comments Oral Care Comments standing at sink OT ADL-Dressing Comments OT Dressing Comments Pt declined to perform OT ADL-Toileting General Evaluation Toileting Ability Standby Assistance Comments OT Toileting Comments seated on toielt without physical assist. OT ADL-Bathing Comments OT Bathing Comments Pt declined to perform. States she would rather do at home where she has her special hair products. M5 OT- IP IADL's Start: 04/01/20 15:26 Freq: Status: Active Protocol: Document 04/01/20 15:00 [facility] (Rec: 04/01/20 15:56 [facility] [id number]) OT-Instrumental Activities of Daily Living Medication Management Medication Management Comments Pt states prior able to do for herself prior. Money Management Money Management Comments Pt states was independent prior. Meal Preparation Meal Preparation Comments Pt states to have frozen meals . Suggested to have friend pull table closer to counter in the kitchen so not having to carry her food and walk with the walker at the same time. Driving Driving Comments Pt states to do paratransit for now. M6 OT- IP Functional Cognition Start: 04/01/20 15:26 Freq: Status: Active Protocol: Document 04/02/20 11:35 [facility] (Rec: 04/02/20 11:50 [facility] [id number]) Cognitive Factors Limiting Selfcare Function Cognitive Ability Level of Alertness Alert,Confusional State Patient Orientation Name,Age,Birthday,Month,Year, Place,Situation Attention Span Ability Capable of Focused Attention, Unable to Sustain Attention Ability to Follow Commands Able to Follow One Step Commands with Increased Time, Able to Follow One Step Commands with Repetition OT- Vision and Hearing OT- Hearing Assessment OT- Hearing Assessment WFL OT- Vision Assessment Visual Acuity Glasses All The Time Vision Assessment Comments Pt denies any recent vision changes M7 OT- IP Mobility and Balance Start: 04/01/20 15:26 Freq: Status: Active Protocol: Document 04/02/20 11:35 [facility] (Rec: 04/02/20 11:50 [facility] [id number]) OT- Bed Mobility Assessment Rolling Type of Rolling Log Rolling,Roll to Left Level of Assistance Minimal Assistance Supine to Sit Supine to Sit Assist Minimal Assistance Sit to Supine Sit to Supine Assist Minimal Assistance Scooting Scooting to Edge of Bed Standby Assistance OT-Transfer Assessment Sit to and From Stand Sit to and from Stand Standby Assistance Transfers Transfer Ability Standby Assistance Technique Transfer Destination Bed,Toilet Transfer Technique Stand Step Pivot Devices Transfer Assistive Devices Gait Belt,Front Wheeled Walker OT- Gait Assessment Gait Gait Assistance Required: Standby Assistance Assistive Devices Assistive Device Gait Belt,Front Wheeled Walker Comments Gait Ability Comments Pt needs reminders to use the walker correctly and to not leave it behind OT- Balance Assessment Sitting Balance and Reactions Static Sitting Balance Ability Good Dynamic Sitting Balance Ability Fair M8 OT- IP Objective Assessments Start: 04/01/20 15:26 Freq: Status: Active Protocol: Document 04/01/20 15:00 [facility] (Rec: 04/01/20 15:56 [facility] [id number]) OT Gross Range of Motion Upper Extremity Range of Motion Assessment Within Functional Limits OT-Muscle Tone Assessment Muscle Tone WNL Yes M9 OT- IP Assessment and Plan Start: 04/01/20 15:26 Freq: Status: Active Protocol: Document 04/02/20 11:35 [facility] (Rec: 04/02/20 11:50 [facility] [id number]) OT Summary Assessment and Plan Potential Rehabilitation Potential Good Analytic Complexity at Evaluation Low Summary OT Impairments Pain,Functional Cognition, Functional Mobility,Dressing, Toileting,Bathing,Toilet Transfers,Shower Transfers Progress Towards Goals Progressing Toward Goals Assessment Summary Pt presents with poor cognition on this date. Pt needs reminders for bed mobility, back precautions, and general safety. Pt appears slightly confused but able to follow commands and perform ADLs. Pt will continue to benefit from OT services. Goals Self-Feeding Goal Independent Grooming Goal Independent Dressing Goal Independent Toileting Goal Independent Bathing Goal Independent Toilet Transfer Goal Independent Shower Transfer Goal Independent Patient/Caregiver Education Goal Demonstrate Post-Op Precautions Days to Meet Goals 7 Frequency of Treatment Frequency Of Treatment Once a Day Treatment Plan OT Treatment Plan ADL Training,Functional Cognition Training,Functional Mobility,Patient/Family Education,Discharge Planning Other Treatment Recommendations and Next shower and practice with LB Treatment Focus dressing equipment Discharge Recommendations OT Discharge Recommendations Home with Assistance,Home Health,SNF Rehab Home Equipment Needs shower chair Transportation Needs at Discharge Private Vehicle
[2020-04-02] MEDS: hydrOXYzine pamoate 25 MG CAPSULE PO (11:08)
[2020-04-02 11:13] VITALS: BP 131/65; PULSE 83; RESP 17; TEMP 36.9; O2SAT 97
--- NOTE | 2020-04-02 11:30 | CM.DPC ---
DCP Discharge Home with HH Per Ortho PA, pt likely stable for d/c today and SW updated that [facility] auth just confirmed for initial HH eval and now working on setting up contracted [facility] HH agency. Per PT, will do stairs and final CG training with pt's friend. FELIX received call back from WILFREDO FORREST at [facility] [place] ([phone]) stating that pt has been auth'd for initial HH eval and then the HH agency faxes her at [phone] for ongoing auth for disciplines. FELIX called Lana who is willing to review as they work with [facility] on a case by case basis. FELIX faxed clinicals, MD Nisreen orders along with Lorene at [facility] information for ongoing [facility] process[facility]. Plan: SW to follow for return call from [facility] to confirm they can accept pt otherwise to make additional HH referral for plan of d/c home with friend today. DAVIE Staley
--- NOTE | 2020-04-02 11:38 | PM.DS.1 ---
History of Present Illness History of Present Illness Date Patient Seen: 04/02/20 Time Patient Seen: 11:39 Chief complaint: TLIF Narrative: Please see HPI previously recorded in the chart. Discharge Providers Provider Date of admission: 03/31/20 10:00 Discharge Date: 04/02/20 Primary care physician: MOJGAN Harman Consults: 03/31/20 16:57 Consult to Occupational Therapy Evaluate & Treat Comment: Physician Instructions: Evaluate and treat Consult to Physical Therapy Evaluate & Treat Comment: Physician Instructions: Evaluate and Treat 04/01/20 13:26 Consult to Home Health Routine Comment: Reason For Exam: Home Health Upon DC Discharge provider: Jana Hendrix PA-C Summary Hospital Course Discharge Diagnosis: s/p lumbar fusion revision Hospital Course: Patient has been having chronic back pain and worsening lumbar radiculopathy. Patient had prior lumbar fusion surgery and was doing well until approximately 6 months ago and started having worsening symptoms. CT of lumbar spine shows worsening L3-4 level stenosis with questionable hardware loosening at L4-5 level. Patient failed multiple conservative management with worsening pain weakness and numbness in her lower extremity. Patient has been having difficulty performing activity of daily living. After discussing risks benefits of treatment options, patient elected proceed with surgery. She was taken to the OR and underwent a L3-4, L4-[address] Cruz which she tolerated without complications. She was transferred to the acute care floor where she has been progressing slowly postoperatively. She has been working with both PT and OT over the course of her hospitalization. Pain has been managed with oxycodone IR and ER which she will be discharged with. She is tolerating a diet and is voiding appropriately. She is being set up with home health services and has several friends who will be taking care of her at home. She is stable for discharge to home later today. Status at Discharge Cognitive/behavioral status at discharge: oriented Functional status at discharge: uses cane/walker Overall status at discharge: patient is progressing back to baseline Exam Vital Signs (past 8 hours): - 04/02/20 04:50 04/02/20 08:38 04/02/20 08:57 Temperature 100.9 F H 98.6 F Pulse Rate 78 59 L 61 Respiratory Rate 20 16 16 Blood Pressure 102/61 87/53 L Pulse Oximetry 96 97 98 04/02/20 09:21 09/11/20 11:13 Temperature 98.4 F Pulse Rate 64 83 Respiratory Rate 17 Blood Pressure 94/54 L 131/65 Pulse Oximetry 97 Oxygen Delivery Method Room Air Oxygen Flow Rate 0 Narrative Exam Narrative: 64 year old female resting in bed. AAO x3. Dressing over lumbar spine is CDI. 4/5 throughout B/L lower extremities which is consistent with her preop exam. Calves soft with palpable pedal pulses bilaterally. Objective Labs Result Diagrams: 04/01/20 06:13 Discharge Plan Discharge Plan Patient Disposition: Home Health Service Discharge comment: home with home health Discharge orders & Medications Prescriptions: New oxycodone 5 mg Tablet 5 - 10 mg PO Q4-5H PRN (Reason: Pain, Severe (7-10)) Qty: 90 RF: 0 hydroxyzine pamoate 25 mg Capsule 25 mg PO Q4HR PRN (Reason: Nausea And Vomiting) Qty: 60 RF: 0 oxycodone [OxyContin] 10 mg Tablet,Oral Only,Ext.Rel.12 Hr 10 mg PO BID Qty: 30 RF: 0 docusate sodium [DOK] 100 mg Capsule 100 mg PO BID Qty: 40 RF: 0 Continued venlafaxine 150 mg Capsule,Extended Release 24hr 300 mg PO DAILY RF: 0 trazodone 150 mg Tablet 150 mg PO BEDTIME RF: 0 fluticasone propionate [Flonase Allergy Relief] 50 mcg/actuation [place],Suspension 2 spray INTRANASAL DAILY RF: 0 prazosin 2 mg Capsule 2 mg PO QID RF: 0 quetiapine [Seroquel] 50 mg Tablet 50 mg PO BEDTIME RF: 0 levothyroxine 50 mcg Capsule 50 mcg PO DAILY RF: 0 lorazepam 1 mg Tablet 1 mg PO TID PRN (Reason: Anxiety) RF: 0 dextroamphetamine-amphetamine 10 mg Tablet 15 mg PO BID RF: 0 acetaminophen 325 mg Tablet 650 mg PO Q6HR PRN (Reason: Pain, Mild (1-3)) Qty: 0 RF: 0 diphenhydramine HCl [Allergy (diphenhydramine)] 25 mg Tablet 25 mg PO Q6HR PRN (Reason: Itching) Qty: 0 RF: 0 docusate sodium 100 mg Capsule 100 mg PO BID Qty: 0 RF: 0 nicotine 7 mg/24 hr Patch 24 Hour 7 mg Topical DAILY Qty: 0 RF: 0 lamotrigine 25 mg Tablet 25 mg PO BEDTIME RF: 0 pantoprazole 40 mg Tablet,Delayed Release (Dr/Ec) 40 mg PO DAILY RF: 0 cyclobenzaprine 10 mg tablet 10 mg PO TID RF: 0 oxycodone 5 mg tablet 10 mg PO QID RF: 0 clobetasol 0.025 % Cream 1 applic TOPICAL BEDTIME RF: 0 cetirizine [Aller-Jeromy] 10 mg Tablet 10 mg PO DAILY RF: 0 clonazepam 1 mg Tablet 1 mg PO TID RF: 0 Follow up/Referrals: Nuha Quarles ARNP [Primary Care Provider] - Diet/Activity/Treatments Diet: Diet as Tolerated and Regular Activity: Limit bending twisting and lifting Skin/Wound/Dressing Care Report to your healthcare provider any signs of infection, such as:: chills, fever, night sweats, increased pain, unusual drainage and unusual redness Dressing: Keep dressing clean dry intact until f/u Visit Report/Discharge Packet Instructions: DI for Prescription Opioid Use, DI for Transforaminal Lumbar Interbody Fusion Stand Alone Forms: Surgery Discharge Visit Report Forms: Patient Portal/API, Stroke Signs & Symptoms Discharge Data Primary Care Provider: Nuha Quarles Quality VTE Deep Vein Thrombosis/Pulmonary Embolism Present on Admission: No
--- NOTE | 2020-04-02 12:22 | PT.IPTN ---
Current Diagnoses Scoliosis, unspecified (03/31/20) Spondylosis without myelopathy or radiculopathy, lumbar region (03/31/20) Spinal stenosis, lumbar region without neurogenic claudication (03/31/20) Arthrodesis status (03/31/20) Surgery Performed Operation Date: 03/31/20 11:15 Actual Procedures p L4-5 lumbar hardware removal, exploration of fusion, repeat laminectomy, L3-4 TLIF, L3-5 PSF with instrumentation - Rossy Cruz MD Physical Therapy Treatment Note M2 PT-IP Current Condition Start: 04/01/20 08:27 Freq: NEEDED Status: Active Protocol: Document 04/01/20 10:55 AW (Rec: 04/01/20 12:57 AW [id number]) Physical Therapy Current Condition Current Condition Evaluation Date 04/01/20 Treatment Diagnosis revision lumbar fusion; difficulty in walking Onset Date 03/31/20 Precautions Lumbar Precautions Log Roll,No Twisting,Limit Bending,Lifting Restriction of 10 lbs,Gait Belt above Incisional Area Other Precautions high falls risk M3 PT-IP Subjective Start: 04/01/20 08:27 Freq: NEEDED Status: Active Protocol: Document 04/02/20 11:51 KS (Rec: 04/02/20 13:15 KS [id number]) Subjective Physical Therapy Visit Type Type Treatment Note Visit Start Time 11:51 Visit Stop Time 12:22 Total Visit Minutes 31 Number of [employer] Visits 1 Physical Therapy Visit Comments Patient Comments Pt is willing to participate with PT Therapy Pain Assessment Pain When Pain Assessed During Mobility Pain Present Pain Present Pain Reported Location Lower Back Intensity 9 Scale Used 9/10 at rest; unchanged with mobility Pain Management Techniques Apply Cold,Distraction,Re- positioning,Timing of Activity with Medications M4 PT-IP Mobility and Gait Start: 04/01/20 08:27 Freq: NEEDED Status: Active Protocol: Document 04/02/20 11:51 KS (Rec: 04/02/20 13:15 KS [id number]) PT-Bed Mobility Assessment Rolling Type of Rolling Log Rolling,Roll to Left Level of Assist Standby Assistance Supine to Sit Supine to Sit Standby Assistance Sit to Supine Sit to Supine Standby Assistance Scooting Scooting to Edge of Bed Standby Assistance PT-Transfer Assessment Sit to and From Stand Sit to and from Stand Standby Assistance,1 Person Assistance,Use of Upper Extremities Equipment Transfer Assistive Device Gait Belt,Front Wheeled Walker Orthotic/Prosthetic Devices or Brace: No Transfers Transfer Destination Bed Transfer Technique pt ambulated with FWW Transfer Ability Level of Assist Standby Assistance,Use of Upper Extremities Comments Mobility Comments Pt in bed upon arrival from therapy. SBA for logroll to L and for sidelying<>sit. Pt scooted to EOB SBA and verbalized all spinal precautions. Pt then sit<> stand FWW SBA and ambulated to stairs ~20 ft w/ FWW. Pt ascended/descended 3 steps SBA w/ BUE using L rail side stepping to avoid twisting motions. Pt then ambulated ~ 150 [address] in hallway w/ FWW and c /o of 04/01 pain, however was medicated prior to treatment. Pt requested to use SPC, returned to stairs and ascended/descended 3 steps w/ SPC and L hand rail. Pt did not use SPC properly on stairs and was unsafe w/ ascent and descent despite cues for proper use. Pt stated she wants to use SPC on stairs when carrying groceries so that she can tie grocery bag to cane and hold rail on other side, explained to pt that using a SPC w/ groceries is not safe and reminded pt of lifting restrictions. Pt returned to room and stand<> sit<>sidelying logroll back into bed SBA. Pt left in bed w / all needs in reach. Explained to pt that she is only safe to use FWW currently and that whoever is taking her home will need to position FWW appropriately for pt, ie in front of her to ambulate to stairs, on landing of stairs, and at top of stairs for pt to use in home. Pt verbalized agreement and stated her friend will do that for her. Explained to pt she is not safe to use SPC currently and she verbalized understanding and agrees to only ambulate w/ FWW. Pt stated she went to [facility] prior to surgery and puchased groceries and will not have to go for a while. Gait Assessment Gait Gait Assistance Required: Standby Assistance Distance (Feet) 180 Able to Maintain Weight Bearing Status Yes During Gait Assistive Devices Assistive Device Gait Belt,Front Wheeled Walker Gait Deviations General Gait Pattern Antalgic,Decreased Stride Length,Decreased Feet Clearance,Flexed Trunk Factors Limiting Gait Function Factors Limiting Gait Function Decreased Activity Tolerance, Decreased Sensation,Decreased Strength,Limited Range of Motion,Pain,Poor Balance,Poor Safety Awareness Comments Gait Comments Pt ambulated ~180 ft total w/ FWW and c/o 9/10 pain. Pt had poor safety awareness and needed cues x2 to avoid obstacles. Stair Climbing Assessment Evaluation Level of Assist On Stairs Standby Assistance,Contact Guard Assistance Devices Stair Climbing Assistive Devices Left Railing,Right Railing Technique/Endurance Stair Climbing Direction Ascend and Descend Stair Climbing Technique Step to Step Number of Steps Climbed 3 Stair Climbing Set # Repetitions (reps) 2 Comments Stair Climbing Comments Pt ascended/descended 3 steps w/ BUE on L rail ascending and descending w/ side step to pattern ascending/descending to avoid twisting. Pt then ascended/descended 3 steps w/ SPC and R hand rail, however still attempted side stepping up and down stairs and needed max cues for safety and proper use of SPC. SPC is unsafe to use at this time as it presents as an obstacle and pt is unable to use properly w/ cues. Pt verbalized understanding that she will use hand rail and her friend will place FWW appropriately ( carry up stairs, place on landing). PT-Balance Assessment Sitting Balance and Reactions Static Sitting Balance Ability Normal Dynamic Sitting Balance Ability Good Standing Balance and Reactions Static Standing Balance Ability Good Dynamic Standing Balance Ability Good Device Used FWW M5 PT-IP Objective Assessments Start: 04/01/20 08:27 Freq: NEEDED Status: Active Protocol: Document 04/01/20 10:55 AW (Rec: 04/01/20 12:57 AW [id number]) Orientation Orientation/Cognition Level of Alertness Alert Orientation Name,Day of Week,Place, Situation Language Function Ability No Deficits Noted Safety Awareness Understands Safety Issues, Decreased Safety Awareness Memory Description No Deficits Noted Gross Range of Motion Lower Extremity ROM Assessment Within Functional Limits Strength Lower Extremity Strength Assessment Bilaterally Impaired Hip 4-/5 Knee 4/5 Ankle 4+/5 Coordination Assessment Gross Coordination Gross Coordination WNL Sensation Assessment Sensation Gross Sensation WNL Comments Sensation Comments Pt denied any numbness/ tingling BLE. Muscle Tone Muscle Tone WNL Yes M6 PT-IP Treatment Start: 04/01/20 08:27 Freq: NEEDED Status: Active Protocol: Document 04/02/20 11:51 KS (Rec: 04/02/20 13:15 KS [id number]) Physical Therapy Treatment Education Education Provided Precautions,Safety Other Treatments Other Treatment Performed reveiwed spinal precautions M7 PT-IP Assessment and Plan Start: 04/01/20 08:27 Freq: NEEDED Status: Active Protocol: Document 04/02/20 11:51 KS (Rec: 04/02/20 13:15 KS [id number]) PT Summary Assessment and Plan Potential Rehabilitation Potential Good Status of Condition at Evaluation Evolving Summary Impairments Pain,ROM,Strength,Balance,Bed Mobility,Transfers,Gait, Activity Tolerance Progress Towards Goals Progressing Toward Goals Assessment Summary Pt SBA for bed mobility, log roll. transfers, and ambulation. Pt ambulated ~200 total ft w/ FWW and SBA w/ cues to avoid obstacles. Pt ascended/descended 3 steps x2 SBA to CGA. On first set of steps, pt utilized L hand rail w/ BUE and side step to pattern ascending/descending SBA w/ 1x cue for sequencing. On second step, pt used SPC and hand rail and attempted to still side step and was unable to properly use SPC even w/ frequent cues. Pt stated she wants to use cane to tie grocery bag to to go upstairs, informed pt why this is unsafe and reminded pt of lifting restrictions and she verbalized understanding. At this time, pt is only safe to use FWW d/t poor safety awareness, poor balance, and improper/unsafe use of SPC. Pt verbally agreed to only ambulate w/ FWW at home and reports she has her own FWW. Pt will benefit from HHPT to improve balance and functional mobility. Goals Bed Mobility Goal Independent Transfer Goal Independent,Front Wheeled Walker Gait Goal Independent,Front Wheel Walker Gait Distance 200 Other Goals - up/down 7 steps with L rail and SPC SBA; 5 steps with R rail and SPC SBA - all in sequence and SBA Days to Meet Goals 5 Frequency of Treatment Frequency Of Treatment Twice a Day Treatment Plan Physical Therapy Treatment Plan Bed Mobility Training,Transfer Training,Gait Training, Therapeutic Exercise,Balance Retraining,Post Op Education, Discharge Planning,Hot or Cold Pack,Neuromuscular Re-ed Other Recommendations and Next Treatment progress gait training; review Focus precautions Recommendations To Nursing Amount of Assist Needed 1 Person Assist Discharge Recommendations PT Discharge Recommendations Home with Assistance,Home Health Transportation Needs at Discharge Private Vehicle
--- NOTE | 2020-04-02 13:07 | PC.NURSE ---
Day shift note: Discharge instructions given to patient, discussed importance of F/U with Dr. Cruz in 2 weeks, activity restrictions, dressing home care, and s/sx of infection. Home with home health. Received home Rx pill bottle of Oxycodone by Pharmacist Jana and vaping pen. Discussed importance of FWW use and home safety. Home via private vehicle, cleared by PT/OT.
== END 2020-04-02 13:30 | disposition home health service (06) | DRG 304 ==
PROVIDERS: Admitting Provider Orthopaedic Surgery Orthopaedic Surgery of the Spine; PCP Nurse Practitioner; Referring Provider Orthopaedic Surgery Orthopaedic Surgery of the Spine; Visit Provider Orthopaedic Surgery Orthopaedic Surgery of the Spine
PROC: 0SG00AJ Fusion of Lumbar Vertebral Joint with Interbody Fusion Device, Posterior Approach, Anterior Column, Open Approach (ICD-10-PCS; principal; 2020-03-31 11:15)
DX: M48.061 Spinal stenosis, lumbar region without neurogenic claudication (principal); T84.038A Mechanical loosening of other internal prosthetic joint, initial encounter; M96.0 Pseudarthrosis after fusion or arthrodesis; M47.816 Spondylosis without myelopathy or radiculopathy, lumbar region; M51.26 Other intervertebral disc displacement, lumbar region; Z98.1 Arthrodesis status; G89.29 Other chronic pain; F17.210 Nicotine dependence, cigarettes, uncomplicated; Y99.0 Civilian activity done for income or pay
CPT/HCPCS: 36415; 72100; 76000; 85014; 85018; 97116; 97161; 97165; 97530; 97535; 99406; C1776; C9290; J0330; J0690; J1100; J1170; J2250; J2405; J2704; J3010; J3410